=== PATIENT | male | born 1935 | race Caucasian/White ===

== ENCOUNTER 2017-09-10 17:35 | Observation (INO) | payer MEDICARE ==
[2017-09-10 17:57] LABS: Basophils % (A) 1 %; Eosinophils # (A) 0.3 k/uL (0-0.7); Eosinophils % (A) 3 %; HCT 37.8 % (39.0-53.0); HGB 12.6 gm/dL (13.0-17.5); Lymphocytes # (A) 2.5 k/uL (1.0-4.8); Lymphocytes % (A) 30 %; MCHC 33.4 g/dL (31.0-37.0); MCV 101.9 fL (80.0-100.0); Macrocytosis Slight; Monocytes # (A) 0.6 k/uL (0-1.0); Monocytes % (A) 7 %; Neutrophils # (A) 4.9 k/uL (1.3-7.7); Neutrophils % (A) 59 %; Platelet Count 178 k/uL (150-450); RBC 3.71 m/uL (4.30-5.90); RDW 15.6 % (11.5-15.5); WBC 8.3 k/uL (3.8-10.6)
[2017-09-10 18:07] LABS: Albumin 3.9 g/dL (3.5-5.0); Calcium 9.2 mg/dL (8.4-10.2); Potassium 4.9 mmol/L (3.5-5.1); Total Bilirubin 0.6 mg/dL (0.2-1.3); Total Protein 6.5 g/dL (6.3-8.2)
[2017-09-10 18:15] LABS: Creatine Kinase 67 U/L (55-170)
[2017-09-10 18:25] LABS: INR 1.1 (<1.2); Partial Thromboplastin Time 23.2 sec (22.0-30.0); Prothrombin Time 10.5 sec (9.0-12.0)
[2017-09-10 18:27] LABS: Appearance,Urine Clear (Clear); Bacteria,Urine Rare /hpf; Bilirubin,Urine Negative (Negative); Blood,Urine Negative (Negative); Color,Urine Yellow; Glucose,Urine (UA) 4+ (Negative); Hyaline Casts,Urine 86 /lpf (0-2); Ketones,Urine Trace (Negative); Leukocyte Esterase,Urine Negative (Negative); Mucus,Urine Many /hpf; Nitrite,Urine Negative (Negative); PH, Urine 5.5 (5.0-8.0); Protein,Urine 1+ (Negative); RBC,Urine 1 /hpf (0-5); Specific Gravity,Urine 1.021 (1.001-1.035); Squamous Epithelial Cell,Urine <1 /hpf (0-4); WBC,Urine 3 /hpf (0-5)
[2017-09-10 18:29] LABS: Creatine Kinase MB 1.1 ng/mL (0.0-2.4); Troponin I <0.012 ng/mL (0.000-0.034)
--- NOTE | 2017-09-10 18:37 | CT ---
EXAMINATION TYPE: CT brain wo con DATE OF EXAM: 09/10/2017 COMPARISON: NONE HISTORY: Altered mental status CT DLP: [address] of the brain was performed. The ventricles, basal cisterns and sulci overlying the cerebral convexities demonstrate mild enlargem ent. There is no evidence for intracranial hemorrhage or sulcal effacement. There is decreased attenuation about the periventricular white matter and deep white matter of both c erebral hemispheres, compatible with chronic small vessel ischemia. Differential diagnosis does inclu de demyelination. No mass effects are seen.No midline shift. Osseous calvarium is intact. If symptoms persist consider MRI. IMPRESSION: 1. Age related atrophic and chronic small vessel ischemic change without acute intracranial process s een at this time.
--- NOTE | 2017-09-10 19:07 | XR ---
EXAMINATION TYPE: XR KUB DATE OF EXAM: 09/10/2017 COMPARISON: NONE HISTORY: Pain TECHNIQUE: Single supine KUB image of the abdomen is obtained FINDINGS: Small bowel demonstrates no evidence for dilatation or air fluid levels. Gas and fecal material is seen in non-distended colon. No convincing evidence for pneumoperitoneum. No unusual calcifications. The lung bases are clear. The osseous structures are intact. IMPRESSION: 1. Overall nonobstructive bowel gas pattern.
--- NOTE | 2017-09-10 19:08 | XR ---
EXAMINATION TYPE: XR chest 2V DATE OF EXAM: 09/10/2017 COMPARISON: NONE HISTORY: Shortness of breath TECHNIQUE: Frontal and lateral views of the chest are obtained. FINDINGS: Scattered senescent parenchymal changes noted No evidence for infiltrate. No evidence for atelectasis. Heart size is stable. Mediastinal structures are stable and grossly unremarkable. No evidence for hilar prominence. Degenerative changes dorsal spine. IMPRESSION: 1. No evidence for acute pulmonary disease.
[2017-09-10] MEDS ORDERED: NALOXONE 0.4 MG/ML 1 ML VIAL IV PRN (19:53)
[2017-09-10] MEDS ORDERED: ASPIRIN 325 MG TAB PO STA (19:53)
--- NOTE | 2017-09-10 20:01 | ED ---
General Adult HPI - General Chief complaint: Altered Mental Status Stated complaint: Altered Mental status Time Seen by Provider: 09/10/17 17:38 Source: patient, EMS, RN notes reviewed Mode of arrival: EMS Limitations: altered mental status - History of Present Illness Initial comments: 82-year-old male presenting with episode of confusion and altered mental status. Patient was sitting up with family members, they noted that he was nonresponsive, he does have history of dementia but this was abnormal. Patient has history of TIA. No focal weakness reported patient was brought in by EMS for concerns of TIA and altered mental status. Patient is a poor historian, he does deny any pain complaints. Denies headache. Vital signs were stable during transport. Patient does see neurology for history of Alzheimer's dementia. No fever reported. No nausea vomiting or diarrhea reported. - Related Data Home Medications Medication Instructions Recorded Confirmed Aricept ? 1 tab PO DAILY 09/10/17 09/10/17 Dipyridamole-Aspirin 200-25 mg 1 each PO BID 09/10/17 09/10/17 [Aggrenox] Lipitor ? 1 tab PO DAILY 09/10/17 09/10/17 Namenda ? 1 tab PO DAILY 09/10/17 09/10/17 Allergies Allergy/AdvReac Type Severity Reaction Status Date / Time No Known Allergies Allergy Verified 09/10/17 19:20 Review of Systems ROS Statement: Those systems with pertinent positive or pertinent negative responses have been documented in the HPI. ROS Other: All systems not noted in ROS Statement are negative. Past Medical History Past Medical History: Unable to Obtain History of Any Multi-Drug Resistant Organisms: None Reported Past Surgical History: Unable to Obtain Past Psychological History: No Psychological Hx Reported Smoking Status: Never smoker Past Alcohol Use History: None Reported Past Drug Use History: None Reported General Exam Limitations: altered mental status General appearance: alert, in no apparent distress Head exam: Present: atraumatic, normocephalic Eye exam: Present: normal appearance, PERRL ENT exam: Present: mucous membranes dry Neck exam: Present: normal inspection. Absent: tenderness Respiratory exam: Present: normal lung sounds bilaterally. Absent: respiratory distress Cardiovascular Exam: Present: regular rate, normal rhythm GI/Abdominal exam: Present: soft. Absent: distended, tenderness, guarding Rectal exam: Present: deferred Extremities exam: Present: normal inspection, full ROM, normal capillary refill. Absent: pedal edema Neurological exam: Present: alert, CN II-XII intact. Absent: oriented X3, motor sensory deficit (No focal neurological deficits, NIH is 0) Psychiatric exam: Present: flat affect Skin exam: Present: warm, dry, intact. Absent: cyanosis, diaphoretic Course Vital Signs 09/10/17 09/10/17 17:40 19:00 Temperature 97 F L Pulse Rate 58 L 58 L Respiratory 18 18 Rate Blood Pressure 120/57 136/63 O2 Sat by Pulse 97 100 Oximetry EKG Findings - EKG Comments: EKG Findings:: EKG, sinus bradycardia with first-degree AV block, right bundle branch block, rate of 58, OH interval 316, QRS duration 144, QTC [address] segment elevation. Medical Decision Making - Medical Decision Making 82-year-old male presenting with an episode of confusion and altered mental status. Head CT is obtained, this is negative for any acute intracranial process, there is chronic ischemic changes. Patient's exam is nonfocal. Chest x-ray negative for acute intrathoracic process, no pneumonia. Blood cell count normal, hemoglobin stable, mild lactic acidosis likely secondary to a degree of dehydration. Urinalysis does show trace ketones consistent with dehydration. Patient receives IV hydration in the emergency department. Neurologic examination remains nonfocal. He is given an aspirin at the chance this was a TIA. He will be admitted for further evaluation of altered mental status. Patient's family is agreeable. Case discussed with Dr. Guillaume who will accept admission. - Lab Data Result diagrams: 09/10/17 17:42 09/10/17 17:42 Lab Results 09/10/17 09/10/17 09/10/17 Range/Units 17:42 17:42 17:42 WBC 8.3 (3.8-10.6) k/uL RBC 3.71 L (4.30-5.90) m/uL Hgb 12.6 L (13.0-17.5) gm/dL Hct 37.8 L (39.0-53.0) % MCV 101.9 H (80.0-100.0) fL MCH 34.0 (25.0-35.0) pg MCHC 33.4 (31.0-37.0) g/dL RDW 15.6 H (11.5-15.5) % Plt Count 178 (150-450) k/uL Neutrophils % 59 % Lymphocytes % 30 % Monocytes % 7 % Eosinophils % 3 % Basophils % 1 % Neutrophils # 4.9 (1.3-7.7) k/uL Lymphocytes # 2.5 (1.0-4.8) k/uL Monocytes # 0.6 (0-1.0) k/uL Eosinophils # 0.3 (0-0.7) k/uL Basophils # 0.0 (0-0.2) k/uL Macrocytosis Slight PT (9.0-12.0) sec INR (<1.2) APTT (22.0-30.0) sec Sodium 140 (137-145) mmol/L Potassium 4.9 (3.5-5.1) mmol/L Chloride 108 H (98-107) mmol/L Carbon Dioxide 21 L (22-30) mmol/L Anion Gap 11 mmol/L BUN 18 (9-20) mg/dL Creatinine 1.30 H (0.66-1.25) mg/dL Est GFR (CKD-EPI)AfAm 59 (>60 ml/min/1.73 sqM) Est GFR (CKD-EPI)NonAf 51 (>60 ml/min/1.73 sqM) Glucose 209 H (74-99) mg/dL Plasma Lactic Acid Jose (0.7-2.0) mmol/L Calcium 9.2 (8.4-10.2) mg/dL Total Bilirubin 0.6 (0.2-1.3) mg/dL AST 22 (17-59) U/L ALT 30 (21-72) U/L Alkaline Phosphatase 111 (38-126) U/L Total Creatine Kinase 67 (55-170) U/L CK-MB (CK-2) 1.1 (0.0-2.4) ng/mL CK-MB (CK-2) Rel Index 1.6 Troponin I <0.012 (0.000-0.034) ng/mL Total Protein 6.5 (6.3-8.2) g/dL Albumin 3.9 (3.5-5.0) g/dL Urine Color Urine Appearance (Clear) Urine pH (5.0-8.0) Ur Specific Loring (1.001-1.035) Urine Protein (Negative) Urine Glucose (UA) (Negative) Urine Ketones (Negative) Urine Blood (Negative) Urine Nitrite (Negative) Urine Bilirubin (Negative) Urine Urobilinogen (<2.0) mg/dL Ur Leukocyte Esterase (Negative) Urine RBC (0-5) /hpf Urine WBC (0-5) /hpf Ur Squamous Epith Cells (0-4) /hpf Urine Bacteria (None) /hpf Hyaline Casts (0-2) /lpf Urine Mucus (None) /hpf 09/10/17 09/10/17 09/10/17 Range/Units 17:42 17:42 18:00 WBC (3.8-10.6) k/uL RBC (4.30-5.90) m/uL Hgb (13.0-17.5) gm/dL Hct (39.0-53.0) % MCV (80.0-100.0) fL MCH (25.0-35.0) pg MCHC (31.0-37.0) g/dL RDW (11.5-15.5) % Plt Count (150-450) k/uL Neutrophils % % Lymphocytes % % Monocytes % % Eosinophils % % Basophils % % Neutrophils # (1.3-7.7) k/uL Lymphocytes # (1.0-4.8) k/uL Monocytes # (0-1.0) k/uL Eosinophils # (0-0.7) k/uL Basophils # (0-0.2) k/uL Macrocytosis PT 10.5 (9.0-12.0) sec INR 1.1 (<1.2) APTT 23.2 (22.0-30.0) sec Sodium (137-145) mmol/L Potassium (3.5-5.1) mmol/L Chloride (98-107) mmol/L Carbon Dioxide (22-30) mmol/L Anion Gap mmol/L BUN (9-20) mg/dL Creatinine (0.66-1.25) mg/dL Est GFR (CKD-EPI)AfAm (>60 ml/min/1.73 sqM) Est GFR (CKD-EPI)NonAf (>60 ml/min/1.73 sqM) Glucose (74-99) mg/dL Plasma Lactic Acid Jose 2.1 H* (0.7-2.0) mmol/L Calcium (8.4-10.2) mg/dL Total Bilirubin (0.2-1.3) mg/dL AST (17-59) U/L ALT (21-72) U/L Alkaline Phosphatase (38-126) U/L Total Creatine Kinase (55-170) U/L CK-MB (CK-2) (0.0-2.4) ng/mL CK-MB (CK-2) Rel Index Troponin I (0.000-0.034) ng/mL Total Protein (6.3-8.2) g/dL Albumin (3.5-5.0) g/dL Urine Color Yellow Urine Appearance Clear (Clear) Urine pH 5.5 (5.0-8.0) Ur Specific Loring 1.021 (1.001-1.035) Urine Protein 1+ H (Negative) Urine Glucose (UA) 4+ H (Negative) Urine Ketones Trace H (Negative) Urine Blood Negative (Negative) Urine Nitrite Negative (Negative) Urine Bilirubin Negative (Negative) Urine Urobilinogen 3.0 (<2.0) mg/dL Ur Leukocyte Esterase Negative (Negative) Urine RBC 1 (0-5) /hpf Urine WBC 3 (0-5) /hpf Ur Squamous Epith Cells <1 (0-4) /hpf Urine Bacteria Rare H (None) /hpf Hyaline Casts 86 H (0-2) /lpf Urine Mucus Many H (None) /hpf Disposition Clinical Impression: Altered mental status Disposition: ADMITTED IP TO THIS [facility] Condition: Stable Is patient prescribed a controlled substance at d/c from ED?: No Referrals: Keisha Dave MD [Primary Care Provider] - 1-2 days Decision to Admit Reason: Admit from EC Decision Date: 09/10/17 Decision Time: 20:00
[2017-09-10 22:24] VITALS: BMI 28.5
--- NOTE | 2017-09-11 12:14 | P.HPIM ---
History of Present Illness H&P Date: 09/11/17 Chief Complaint: Syncope This is a 82-year-old gentleman with past medical history noted below significant for prior CVA and advanced dementia who was brought into the emergency room for further evaluation of syncope. Patient is unable to provide any medical history and most of the history was provided by his at bedside. Patient was doing fairly well yesterday and was working with his in the yard all day riding the lawnmower. Afterwards he went inside and his decided to give him a haircut. Patient sat down in the chair and when she is getting ready to give him the haircut patient lost consciousness and collapsed forward and hit his head against the counter. Patient's reports that he was completely out. There was no seizure activity reported. No loss of bowel or urine control. She said that a few minutes later he started waking up but remained very confused. She eventually called EMS and patient was transferred to the emergency room. In the emergency room patient was more awake but remained confused. Computed tomography scan of the brain showed no acute intracranial findings. Patient was admitted to the hospital for further evaluation. He is not currently on telemetry monitoring. 12 leads EKG showed evidence of sinus bradycardia with first-degree heart block. Patient is currently awake and alert. He is oriented only to himself. He does not have any specific concerns. He is wondering if he can go home today. Review of Systems Review of system: 14 points review of systems were obtained and were negative except to what were mentioned in the HPI. Past Medical History Past Medical History: Cancer, CVA/TIA, Dementia, Hypertension, Memory Impairment , Syncope Additional Past Medical History / Comment(s): "bladder CA about 7 years ago, last stoke 2 years ago Nov." History of Any Multi-Drug Resistant Organisms: None Reported Past Surgical History: Unable to Obtain Past Psychological History: No Psychological Hx Reported Smoking Status: Current every day smoker Past Alcohol Use History: None Reported Past Drug Use History: None Reported Medications and Allergies Home Medications Medication Instructions Recorded Confirmed Type Dipyridamole-Aspirin 200-25 mg 1 tab PO BID 09/10/17 09/11/17 History [Aggrenox] Atorvastatin Calcium [Lipitor] 10 mg PO DAILY 09/11/17 09/11/17 History Donepezil [Aricept] 10 mg PO DAILY 09/11/17 09/11/17 History Lisinopril [Zestril] 10 mg PO DAILY 09/11/17 09/11/17 History Memantine [Namenda] 10 mg PO DAILY 09/11/17 09/11/17 History Allergies Allergy/AdvReac Type Severity Reaction Status Date / Time No Known Allergies Allergy Verified 09/10/17 19:20 Physical Exam Vitals: Vital Signs Temp Pulse Pulse Resp BP BP BP 09/11/17 11:36 56 L 18 09/11/17 11:35 69 18 09/11/17 11:34 58 L 18 139/65 09/11/17 07:16 98.0 F 58 L 16 152/69 09/10/17 23:00 98.0 F 70 16 128/64 09/10/17 21:35 98.4 F 65 18 119/64 09/10/17 20:30 66 16 155/74 09/10/17 19:00 58 L 18 136/63 09/10/17 17:40 97 F L 58 L 18 120/57 BP BP Pulse Ox 09/11/17 11:36 120/58 96 09/11/17 11:35 144/63 95 09/11/17 11:34 98 09/11/17 07:16 97 09/10/17 23:00 97 09/10/17 21:35 96 09/10/17 20:30 95 09/10/17 19:00 100 09/10/17 17:40 97 Intake and Output 09/10/17 09/11/17 09/11/17 22:59 06:59 14:59 Intake Total 250 Balance 250 Intake: Oral 250 Other: Voiding Method Diaper Diaper # Voids 1 1 # Bowel Movements 1 Weight 95.254 kg General: The patient is awake and alert, in no distress Eye: there is normal conjunctiva bilaterally. Neck: The neck is supple, there is no JVD. Cardiovascular: Normal S1-S2, no S3-S4, no murmurs. Respiratory: Lungs clear to auscultation bilaterally Gastrointestinal: Abdomen is soft, nontender Musculoskeletal: There is no pedal edema. Neurological:. Speech is normal. Skin: Skin is warm and dry Results CBC & Chem 7: 09/10/17 17:42 09/10/17 17:42 Labs: Abnormal Lab Results - Last 24 Hours (Table) 09/10/17 09/10/17 09/10/17 Range/Units 17:42 17:42 17:42 RBC 3.71 L (4.30-5.90) m/uL Hgb 12.6 L (13.0-17.5) gm/dL Hct 37.8 L (39.0-53.0) % MCV 101.9 H (80.0-100.0) fL RDW 15.6 H (11.5-15.5) % Chloride 108 H (98-107) mmol/L Carbon Dioxide 21 L (22-30) mmol/L Creatinine 1.30 H (0.66-1.25) mg/dL Glucose 209 H (74-99) mg/dL Plasma Lactic Acid Jose 2.1 H* (0.7-2.0) mmol/L Urine Protein (Negative) Urine Glucose (UA) (Negative) Urine Ketones (Negative) Urine Bacteria (None) /hpf Hyaline Casts (0-2) /lpf Urine Mucus (None) /hpf 09/10/17 Range/Units 18:00 RBC (4.30-5.90) m/uL Hgb (13.0-17.5) gm/dL Hct (39.0-53.0) % MCV (80.0-100.0) fL RDW (11.5-15.5) % Chloride (98-107) mmol/L Carbon Dioxide (22-30) mmol/L Creatinine (0.66-1.25) mg/dL Glucose (74-99) mg/dL Plasma Lactic Acid Jose (0.7-2.0) mmol/L Urine Protein 1+ H (Negative) Urine Glucose (UA) 4+ H (Negative) Urine Ketones Trace H (Negative) Urine Bacteria Rare H (None) /hpf Hyaline Casts 86 H (0-2) /lpf Urine Mucus Many H (None) /hpf Thrombosis Risk Factor Assmnt - Choose All That Apply Any of the Below Risk Factors Present?: Yes Each Factor Represents 1 point: Obesity (BMI >25) Each Risk Factor Represents 3 Points: Age 75 years or older Thrombosis Risk Factor Assessment Total Risk Factor Score: 4 Thrombosis Risk Factor Assessment Level: Moderate Risk Assessment and Plan Assessment: 1. Syncope: May be vasovagal. I would place patient on telemetry monitoring and obtain echocardiogram. 12 leads EKG showed sinus bradycardia with evidence of first-degree heart block. We'll consult cardiology for further evaluation. Orthostatic blood pressure ordered as well. 2. History of CVA: Computed tomography scan of the brain in the emergency room showed no acute intracranial finding 3. Essential hypertension we will resume home dose of lisinopril and continue to monitor closely 5. Mixed hyperlipidemia: Maintained on Lipitor. I would check fasting lipid profile
--- NOTE | 2017-09-11 14:51 | P.CRDCN ---
History of Present Illness Consult date: 09/11/17 History of present illness: Mr. Lou is a pleasant 82-year-old male past medical history significant for dementia, hypertension, CVA and nicotine dependence. The patient is a poor historian and his is at the bedside providing much information. Patient is seen in consultation for syncopal episode that occurred yesterday. She states they were outside in the yard doing work together for the bulk of the afternoon. After coming in she had him sit down at the counter was going to cut his hair. While sitting there he slumped forward hitting his head on the counter. She states his eyes were rolling back and has had and he was essentially unresponsive. Her grandson was home at the time and helped her assist him to the couch. He was nonverbal at the time. EMS was called and he was brought to the hospital for evaluation. EKG reveals first-degree AV block with right bundle branch block pattern no acute ST or T wave abnormalities noted. Heart rate in the 50s. Chest x-ray is negative for an acute cardiopulmonary process. CT of the brain is negative for an acute intracranial process. With evidence of chronic small vessel ischemic changes. Laboratory data reviewed, hemoglobin 12.6, platelets 178, sodium 140, potassium 4.9, creatinine 1.3, cardiac enzymes negative 1. Current cardiac medications include atorvastatin 10 mg daily, lisinopril 10 mg daily. He also takes Namenda, Aricept and Aggrenox. Most recent echocardiogram performed 2014 reveals preserved left ventricular systolic function with aortic valve stenosis peak/mean 17/9 mmHg. Most recent carotid duplex performed 2014 reveals mild to moderate atherosclerotic changes right greater than left with no significant stenosis. Review of Systems ROS unobtainable: due to mental status Past Medical History Past Medical History: Cancer, CVA/TIA, Dementia, Hypertension, Memory Impairment , Syncope Additional Past Medical History / Comment(s): "bladder CA about 7 years ago, last stoke 2 years ago Nov." History of Any Multi-Drug Resistant Organisms: None Reported Past Surgical History: Unable to Obtain Past Psychological History: No Psychological Hx Reported Smoking Status: Current every day smoker Past Alcohol Use History: None Reported Past Drug Use History: None Reported Medications and Allergies Home Medications Medication Instructions Recorded Confirmed Type Dipyridamole-Aspirin 200-25 mg 1 tab PO BID 09/10/17 09/11/17 History [Aggrenox] Atorvastatin Calcium [Lipitor] 10 mg PO DAILY 09/11/17 09/11/17 History Donepezil [Aricept] 10 mg PO DAILY 09/11/17 09/11/17 History Lisinopril [Zestril] 10 mg PO DAILY 09/11/17 09/11/17 History Memantine [Namenda] 10 mg PO DAILY 09/11/17 09/11/17 History Allergies Allergy/AdvReac Type Severity Reaction Status Date / Time No Known Allergies Allergy Verified 09/10/17 19:20 Physical Exam Vitals: Vital Signs Temp Pulse Pulse Resp BP BP BP 09/11/17 11:36 56 L 18 09/11/17 11:35 69 18 09/11/17 11:34 58 L 18 139/65 09/11/17 07:16 98.0 F 58 L 16 152/69 09/10/17 23:00 98.0 F 70 16 128/64 09/10/17 21:35 98.4 F 65 18 119/64 09/10/17 20:30 66 16 155/74 09/10/17 19:00 58 L 18 136/63 09/10/17 17:40 97 F L 58 L 18 120/57 BP BP Pulse Ox 09/11/17 11:36 120/58 96 09/11/17 11:35 144/63 95 09/11/17 11:34 98 09/11/17 07:16 97 09/10/17 23:00 97 09/10/17 21:35 96 09/10/17 20:30 95 09/10/17 19:00 100 09/10/17 17:40 97 Intake and Output 09/10/17 09/11/17 09/11/17 22:59 06:59 14:59 Intake Total 250 Balance 250 Intake: Oral 250 Other: Voiding Method Diaper Diaper # Voids 1 2 # Bowel Movements 1 Weight 95.254 kg Blood pressure 120/58 heart rate 56 afebrile maintaining oxygen saturation on room air GENERAL: This is a 82-year-old occasion male in no apparent distress at the time of my examination. HEENT: Head is atraumatic, normocephalic. Pupils are equal, round. Sclerae anicteric. Conjunctivae are clear. Mucous membranes of the mouth are moist. Neck is supple. There is no jugular venous distention. No carotid bruit is heard. LUNGS: Clear to auscultation no wheezes, rales or rhonchi. No chest wall tenderness is noted on palpation or with deep breathing. HEART: Regular rate and rhythm with systolic ejection murmur at the base, no rubs or gallops. S1 and S2 heard. ABDOMEN: Soft, nontender. Bowel sounds are heard. No organomegaly noted. EXTREMITIES: No evidence of peripheral edema and no calf tenderness noted. VASCULAR: Radial and dorsalis pedis pulses palpated, no evidence of clubbing. NEUROLOGIC: Patient is awake, cooperative and confused. states this is his baseline. Results 09/10/17 17:42 09/10/17 17:42 Cardiac Enzymes 09/10/17 09/10/17 Range/Units 17:42 17:42 AST 22 (17-59) U/L CK-MB (CK-2) 1.1 (0.0-2.4) ng/mL Troponin I <0.012 (0.000-0.034) ng/mL Coagulation 09/10/17 Range/Units 17:42 PT 10.5 (9.0-12.0) sec APTT 23.2 (22.0-30.0) sec CBC 09/10/17 Range/Units 17:42 WBC 8.3 (3.8-10.6) k/uL RBC 3.71 L (4.30-5.90) m/uL Hgb 12.6 L (13.0-17.5) gm/dL Hct 37.8 L (39.0-53.0) % Plt Count 178 (150-450) k/uL Comprehensive Metabolic Panel 09/10/17 Range/Units 17:42 Sodium 140 (137-145) mmol/L Potassium 4.9 (3.5-5.1) mmol/L Chloride 108 H (98-107) mmol/L Carbon Dioxide 21 L (22-30) mmol/L BUN 18 (9-20) mg/dL Creatinine 1.30 H (0.66-1.25) mg/dL Glucose 209 H (74-99) mg/dL Calcium 9.2 (8.4-10.2) mg/dL AST 22 (17-59) U/L ALT 30 (21-72) U/L Alkaline Phosphatase 111 (38-126) U/L Total Protein 6.5 (6.3-8.2) g/dL Albumin 3.9 (3.5-5.0) g/dL Current Medications Generic Name Dose Route Start Last Admin Trade Name Freq PRN Reason Stop Dose Admin Atorvastatin Calcium 10 mg 09/12/17 09:00 Lipitor PO DAILY [facility] Dipyridamole/Aspirin 1 each 09/11/17 21:00 Aggrenox PO BID [facility] Donepezil HCl 10 mg 09/12/17 09:00 Aricept PO DAILY [facility] Heparin Sodium (Porcine) 5,000 unit 09/11/17 21:00 Heparin SQ Q12HR [facility] Lisinopril 10 mg 09/12/17 09:00 Zestril PO DAILY [facility] Memantine 10 mg 09/12/17 09:00 Namenda PO DAILY [facility] Naloxone HCl 0.2 mg 09/10/17 19:53 Narcan IV Q2M PRN Opioid Reversal Intake and Output 09/10/17 09/11/17 09/11/17 22:59 06:59 14:59 Intake Total 250 Balance 250 Intake: Oral 250 Other: Voiding Method Diaper Diaper # Voids 1 2 # Bowel Movements 1 Weight 95.254 kg 09/10/17 17:42 09/10/17 17:42 Assessment and Plan Assessment: ASSESSMENT 1. Syncope 2. Hypertension 3. Dyslipidemia 4. Alzheimer's dementia PLAN Obtain 2-D echocardiogram and Doppler study to assess cardiac structure and function. Check d-dimer and TSH. Ongoing telemetry monitoring to assess for arrhythmia. Avoid AV kirsten blocking agents. Further recommendations to follow. Thank you kindly for this consultation. Nurse Practitioner note has been reviewed, I agree with a documented findings and plan of care. Patient was seen and examined.
[2017-09-11 16:17] LABS: T4, Free (Free Thyroxine) 1.28 ng/dL (0.78-2.19)
--- NOTE | 2017-09-11 19:18 | P.CNNES ---
History of Present Illness Consult date: 09/11/17 Reason for Consult: Patient with syncope and history of dementia. History of Present Illness: This patient is a 82-year-old right-handed white male who is been followed in the outpatient neurology clinic for Alzheimer's dementia and progressive weakness. Patient was at home recently and was assisting his and some yard work outdoors and was riding the lawnmower. Apparently he went inside after doing an extensive amount of exercise and assistance to his and decided to take a short break. He was sitting at the kitchen table and apparently his decided to give him a haircut. He sat down in the chair and she was getting ready to help cut his hair when he apparently lost consciousness and collapsed forward. His head hit the counter top any was unresponsive. Patient noted that he was unresponsive and not arousable. There was no seizure activity noted with this episode. There was no loss of bowel or bladder control. She did call EMS and he did wake up and appeared to be very confused. He was transferred by EMS to the emergency room at [facility] for further evaluation. He was seen in the ER by Dr. Calles. He was sent for a computed tomography scan of the brain yesterday which revealed age related atrophy and chronic small vessel ischemic changes. No evidence of acute intracranial process. There was diffuse cortical atrophy noted consistent with his history of dementia. In the emergency room his EKG revealed him to have some degree of sinus bradycardia with first-degree AV heart block. He was admitted to the hospital for further evaluation. He is now seen today on the medical floor and seems to be resting comfortably. He has a known history of underlying dementia for which she has been taking Aricept and Namenda. He has a history of previous stroke and for this reason also takes Aggrenox. was not at bedside today but the patient does seem to be her baseline level of function as he was recently evaluated in the outpatient neurology clinic. His explanation for this recent event was due to the excessive amount of exercise he had done in cleaning up the yard with his . This history suggests possibility of vasovagal syncope in this patient. We will await further recommendations from cardiology in their workup of his sinus bradycardia as well. We will check for orthostatic blood pressure changes. Doubt that he had a seizure but we will obtain routine EEG. His overall prognosis at this time remains guarded. We would recommend to continue him on his current dose of Aricept and Namenda. is aware of our recommendations to consider placement for the patient but she is insistent on having him stay at home with her with outside assistance as needed. The patient is now admitted and neurology has been consulted for further evaluation and recommendations. Review of Systems Constitutional: Denies chills, Denies fever Eyes: denies blurred vision, denies pain Ears, nose, mouth and throat: Denies headache, Denies sore throat Cardiovascular: Denies chest pain, Denies shortness of breath Respiratory: Denies cough Gastrointestinal: Denies abdominal pain, Denies diarrhea, Denies nausea, Denies vomiting Musculoskeletal: Denies myalgias Integumentary: Denies pruritus, Denies rash Neurological: Reports change in mentation, Reports confusion, Reports memory loss, Reports paresthesias, Reports syncope, Denies numbness, Denies weakness Psychiatric: Reports confusion, Reports difficulty concentrating, Reports disorientation, Reports hypersomnia, Reports memory loss, Denies anxiety, Denies depression Endocrine: Denies fatigue, Denies weight change Past Medical History Past Medical History: Cancer, CVA/TIA, Dementia, Hypertension, Memory Impairment , Syncope Additional Past Medical History / Comment(s): "bladder CA about 7 years ago, last stoke 2 years ago Nov." History of Any Multi-Drug Resistant Organisms: None Reported Past Surgical History: Unable to Obtain Past Psychological History: No Psychological Hx Reported Smoking Status: Current every day smoker Past Alcohol Use History: None Reported Past Drug Use History: None Reported Medications and Allergies Home Medications Medication Instructions Recorded Confirmed Type Dipyridamole-Aspirin 200-25 mg 1 tab PO BID 09/10/17 09/11/17 History [Aggrenox] Atorvastatin Calcium [Lipitor] 10 mg PO DAILY 09/11/17 09/11/17 History Donepezil [Aricept] 10 mg PO DAILY 09/11/17 09/11/17 History Lisinopril [Zestril] 10 mg PO DAILY 09/11/17 09/11/17 History Memantine [Namenda] 10 mg PO DAILY 09/11/17 09/11/17 History Allergies Allergy/AdvReac Type Severity Reaction Status Date / Time No Known Allergies Allergy Verified 09/10/17 19:20 Physical Examination - Vital Signs Vital Signs: Vital Signs Temp Pulse Pulse Resp BP BP BP 09/11/17 15:10 98.1 F 52 L 16 09/11/17 11:36 56 L 18 09/11/17 11:35 69 18 09/11/17 11:34 58 L 18 139/65 09/11/17 07:16 98.0 F 58 L 16 152/69 09/10/17 23:00 98.0 F 70 16 128/64 09/10/17 21:35 98.4 F 65 18 119/64 09/10/17 20:30 66 16 155/74 09/10/17 19:00 58 L 18 136/63 09/10/17 17:40 97 F L 58 L 18 120/57 BP BP Pulse Ox 09/11/17 15:10 125/58 98 09/11/17 11:36 120/58 96 09/11/17 11:35 144/63 95 09/11/17 11:34 98 09/11/17 07:16 97 09/10/17 23:00 97 09/10/17 21:35 96 09/10/17 20:30 95 09/10/17 19:00 100 09/10/17 17:40 97 Intake and Output 09/11/17 09/11/17 09/11/17 06:59 14:59 22:59 Intake Total 250 Balance 250 Intake: Oral 250 Other: Voiding Method Diaper Diaper Diaper # Voids 1 2 # Bowel Movements 1 - Constitutional General appearance: average body habitus, cooperative - EENT EENT: PERRL, mucous membranes moist - Respiratory Respiratory: lungs clear, normal breath sounds - Cardiovascular Cardiovascular: regular rate, normal S1, normal S2 Extremities: no peripheral edema bilaterally - Gastrointestinal Gastrointestinal: normoactive bowel sounds - Integumentary Integumentary: normal - Neurologic Cranial nerve examination: PERRL, EOMI, VFF, V1/V2/V3 grossly intact, face symmetric, tongue midline, intact gag reflex, intact corneal reflex, normal palatal elevation Speech examination: intact Sensorimotor examination: intact Motor examination - right side: 4/5: biceps, triceps, wrist flexion, wrist extension, clinical data analyst, hip flexors, knee extensors, dorsiflexion, toe extension (EHL) , plantarflexion Motor examination - left side: 4/5: biceps, triceps, wrist flexion, wrist extension, clinical data analyst, hip flexors, knee extensors, dorsiflexion, toe extension (EHL) , plantarflexion Detailed sensory examination: intact Reflex and gait examination: intact Reflexes: 1+: ankle, bicep, knee, tricep - Musculoskeletal Musculoskeletal: no pain - Psychiatric Psychiatric: mood/affect appropriate, cooperative Results - Laboratory Findings CBC and BMP: 09/10/17 17:42 09/10/17 17:42 Abnormal Lab Findings: Abnormal Labs 09/10/17 09/10/17 09/10/17 17:42 17:42 17:42 RBC 3.71 L Hgb 12.6 L Hct 37.8 L MCV 101.9 H RDW 15.6 H Chloride 108 H Carbon Dioxide 21 L Creatinine 1.30 H Glucose 209 H Plasma Lactic Acid Jose 2.1 H* TSH Urine Protein Urine Glucose (UA) Urine Ketones Urine Bacteria Hyaline Casts Urine Mucus 09/10/17 09/10/17 17:54 18:00 RBC Hgb Hct MCV RDW Chloride Carbon Dioxide Creatinine Glucose Plasma Lactic Acid Jose TSH 6.480 H Urine Protein 1+ H Urine Glucose (UA) 4+ H Urine Ketones Trace H Urine Bacteria Rare H Hyaline Casts 86 H Urine Mucus Many H Assessment and Plan (1) Syncope Current Visit: Yes Status: Acute Code(s): R55 - SYNCOPE AND COLLAPSE SNOMED Code(s): 744455085 (2) Alzheimer's dementia Current Visit: Yes Status: Acute Code(s): G30.9 - ALZHEIMER'S DISEASE, UNSPECIFIED; F02.80 - DEMENTIA IN OTH DISEASES CLASSD ELSWHR W/O BEHAVRL DISTURB SNOMED Code(s): 51455700 (3) Acute encephalopathy Current Visit: Yes Status: Acute Code(s): G93.40 - ENCEPHALOPATHY, UNSPECIFIED SNOMED Code(s): 14534664 (4) First degree AV block Current Visit: Yes Status: Acute Code(s): I44.0 - ATRIOVENTRICULAR BLOCK, FIRST DEGREE SNOMED Code(s): 365766501 Plan: This patient is a 82-year-old male who was admitted to hospital after having an acute witnessed syncopal episode at home yesterday. He had been helping his doing some outdoor work on the yard with cleanup and lawn mowing. He had been out in the sun and decided to come in after several hours and sat down at the kitchen table. He was going to have a haircut which his was planning to do but unfortunately he passed out while sitting in the chair. He was unresponsive for several minutes. He did not show any signs of seizure activity with this episode. There was no bowel or bladder incontinence. He did not bite his tongue. EMS was called and the patient was brought into the emergency room for further evaluation yesterday. He underwent a computed tomography scan of the brain the results which are noted above. His clinical history suggests possibility of vasovagal syncope and/or cardiogenic syncope. Cardiology has been consulted. We will await their further recommendations. We 'll obtain routine EEG to rule out seizure disorder in this patient. This seems to be less likely. He does have history of underlying Alzheimer's dementia and should continue on his current dose of Aricept and Namenda. We will continue close neurological follow-up for the patient during this admission. His overall prognosis at this time remains guarded. Time with Patient: Greater than 30
[2017-09-11] MEDS: HEPARIN SODIUM,PORCINE 5,000 UNIT/ML 1 ML VIAL SQ SCH (20:04)
[2017-09-11] MEDS: DIPYRIDAMOLE-ASPIRIN 200-25 MG 1 EACH CPMP.12HR PO SCH (20:04)
[2017-09-12] MEDS: DIPYRIDAMOLE-ASPIRIN 200-25 MG 1 EACH CPMP.12HR PO SCH (08:15)
[2017-09-12] MEDS: HEPARIN SODIUM,PORCINE 5,000 UNIT/ML 1 ML VIAL SQ SCH (08:16)
[2017-09-12 08:35] LABS: Basophils # (A) 0.1 k/uL (0-0.2); Basophils % (A) 1 %; Eosinophils # (A) 0.4 k/uL (0-0.7); Eosinophils % (A) 5 %; HCT 36.4 % (39.0-53.0); HGB 12.6 gm/dL (13.0-17.5); Lymphocytes # (A) 2.6 k/uL (1.0-4.8); Lymphocytes % (A) 36 %; MCHC 34.6 g/dL (31.0-37.0); MCV 101.3 fL (80.0-100.0); Macrocytosis Slight; Mean Platelet Volume 8.1; Monocytes # (A) 0.4 k/uL (0-1.0); Monocytes % (A) 6 %; Neutrophils # (A) 3.7 k/uL (1.3-7.7); Neutrophils % (A) 51 %; Platelet Count 170 k/uL (150-450); RBC 3.59 m/uL (4.30-5.90); RDW 15.9 % (11.5-15.5); WBC 7.3 k/uL (3.8-10.6)
[2017-09-12] MEDS ORDERED: DONEPEZIL 10 MG TAB PO SCH (09:00)
[2017-09-12] MEDS ORDERED: LISINOPRIL 10 MG TAB PO SCH (09:00)
[2017-09-12] MEDS ORDERED: MEMANTINE 10 MG TAB PO SCH (09:00)
[2017-09-12] MEDS ORDERED: ATORVASTATIN 10 MG TAB PO SCH (09:00)
[2017-09-12 09:11] VITALS: BP 147/73; PULSE 65; RESP 22; TEMP 97.3
[2017-09-12 09:42] LABS: Anion Gap 12 mmol/L; Blood Urea Nitrogen 16 mg/dL (9-20); Calcium 9.1 mg/dL (8.4-10.2); Carbon Dioxide 22 mmol/L (22-30); Chloride 107 mmol/L (98-107); Cholesterol 173 mg/dL (<200); Glucose 171 mg/dL (74-99); HDL Cholesterol 70 mg/dL (40-60); LDL Cholesterol,Calculated 79 mg/dL (0-99); Magnesium 2.2 mg/dL (1.6-2.3); Potassium 4.4 mmol/L (3.5-5.1); Sodium 141 mmol/L (137-145); Triglycerides 122 mg/dL (<150)
--- NOTE | 2017-09-12 12:44 | P.DS ---
Providers Date of admission: 09/10/17 19:53 Expected date of discharge: 09/12/17 Attending physician: Sudhir Guillaume Consults: 09/10/17 19:54 Consult Physician Urgent Consulting Provider: Luly Carrasco Consult Reason/Comments: AMS Do you want consulting provider notified?: Yes 09/11/17 12:12 Consult Physician Routine Consulting Provider: Chinmay Robles Consult Reason/Comments: Syncope Do you want consulting provider notified?: Yes Primary care physician: Keisha Dave Hospital Course: 1. Syncope: Probably vasovagal. 12 leads EKG showed sinus bradycardia with evidence of first-degree heart block. Patient was seen and evaluated by cardiology. Echocardiogram done and awaiting report. Patient was in normal sinus rhythm on telemetry monitoring. No further testing is recommended. Orthostatic blood pressure checked and negative. 2. History of CVA: Computed tomography scan of the brain in the emergency room showed no acute intracranial finding 3. Essential hypertension we will resume home dose of lisinopril and continue to monitor closely 5. Mixed hyperlipidemia: Maintained on Lipitor. Cholesterol within acceptable range Patient will be discharged home in a stable condition. He will follow-up with his PCP regarding echocardiogram report. Patient Condition at Discharge: Stable Plan - Discharge Summary Discharge Rx Participant: No New Discharge Prescriptions: Continue Dipyridamole-Aspirin 200-25 mg [Aggrenox 25MG -200MG] 1 tab PO BID Memantine [Namenda] 10 mg PO DAILY Lisinopril [Zestril] 10 mg PO DAILY Donepezil [Aricept] 10 mg PO DAILY Atorvastatin Calcium [Lipitor] 10 mg PO DAILY Discharge Medication List Dipyridamole-Aspirin 200-25 mg [Aggrenox 25MG -200MG] 1 tab PO BID 09/10/17 [ History] Atorvastatin Calcium [Lipitor] 10 mg PO DAILY 09/11/17 [History] Donepezil [Aricept] 10 mg PO DAILY 09/11/17 [History] Lisinopril [Zestril] 10 mg PO DAILY 09/11/17 [History] Memantine [Namenda] 10 mg PO DAILY 09/11/17 [History] Follow up Appointment(s)/Referral(s): Keisha Dave MD [Primary Care Provider] - 1-2 days Discharge Disposition: HOME SELF-CARE
--- NOTE | 2017-09-12 14:05 | P.PN ---
Subjective Progress Note Date: 09/12/17 Mr. Lou is a pleasant 82-year-old male past medical history significant for dementia, hypertension, CVA and nicotine dependence. The patient is a poor historian and his is at the bedside providing much information. Patient is seen in consultation for syncopal episode that occurred yesterday. She states they were outside in the yard doing work together for the bulk of the afternoon. After coming in she had him sit down at the counter was going to cut his hair. While sitting there he slumped forward hitting his head on the counter. She states his eyes were rolling back and has had and he was essentially unresponsive. Her grandson was home at the time and helped her assist him to the couch. He was nonverbal at the time. EMS was called and he was brought to the hospital for evaluation. EKG reveals first-degree AV block with right bundle branch block pattern no acute ST or T wave abnormalities noted. Heart rate in the 50s. Chest x-ray is negative for an acute cardiopulmonary process. CT of the brain is negative for an acute intracranial process. With evidence of chronic small vessel ischemic changes. Laboratory data reviewed, hemoglobin 12.6, platelets 178, sodium 140, potassium 4.9, creatinine 1.3, cardiac enzymes negative 1. Current cardiac medications include atorvastatin 10 mg daily, lisinopril 10 mg daily. He also takes Namenda, Aricept and Aggrenox. Most recent echocardiogram performed 2014 reveals preserved left ventricular systolic function with aortic valve stenosis peak/mean 17/9 mmHg. Most recent carotid duplex performed 2014 reveals mild to moderate atherosclerotic changes right greater than left with no significant stenosis. 09/12/2017 Patient was seen and examined today resting comfortably in bed with at the bedside. No further symptoms of dizziness or syncope. D-dimer checked yesterday was normal, TSH 6.48 with a free T4 1.28. Blood pressure 147/73 heart rate 65 afebrile maintaining oxygen saturation on room air. Echocardiogram reviewed, mild aortic stenosis with mean gradient 10 mmHg, mild AR, mildly dilated aortic root 3.8 cm and with preserved LV systolic function. Objective - Vital Signs Vital signs: Vital Signs Temp 97.3 F L 09/12/17 07:55 Pulse 65 09/12/17 07:55 Resp 22 09/12/17 07:55 BP 147/73 09/12/17 07:55 Pulse Ox 96 09/12/17 07:55 Intake & Output 09/11/17 09/12/17 09/12/17 18:59 06:59 18:59 Other: Voiding Method Diaper Toilet Toilet Diaper Diaper # Voids 2 1 # Bowel Movements 1 - Exam GENERAL: Well-appearing, well-nourished and in no acute distress. NECK: Supple without JVD or thyromegaly. LUNGS: Breath sounds clear to auscultation bilaterally. Respiration equal and unlabored. No wheezes, rales or rhonchi. HEART: Regular rate and rhythm with systolic ejection murmur at the base, no rubs or gallops. S1 and S2 heard. EXTREMITIES: Normal range of motion, no edema. No clubbing or cyanosis. Peripheral pulses intact and strong. - Labs CBC & Chem 7: 09/12/17 08:01 09/12/17 08:01 Labs: Abnormal Lab Results - Last 24 Hours (Table) 09/10/17 09/12/17 09/12/17 Range/Units 17:54 08:01 08:01 RBC 3.59 L (4.30-5.90) m/uL Hgb 12.6 L (13.0-17.5) gm/dL Hct 36.4 L (39.0-53.0) % MCV 101.3 H (80.0-100.0) fL RDW 15.9 H (11.5-15.5) % Glucose 171 H (74-99) mg/dL HDL Cholesterol 70 H (40-60) mg/dL TSH 6.480 H (0.465-4.680) mIU/L Assessment and Plan Assessment: ASSESSMENT 1. Syncope 2. Hypertension 3. Dyslipidemia 4. Alzheimer's dementia PLAN Stable from a cardiac perspective with no signs of acute arrhythmia. Telemetry tracings continued to show rate of cardiac with first-degree heart block heart rate in the mid to low 50s. We recommended avoiding all AV kirsten blocking agents. Follow-up with Dr. Robles upon discharge. Will require monitoring of aortic root size. Nurse Practitioner note has been reviewed, I agree with a documented findings and plan of care. Patient was seen and examined.
--- NOTE | 2017-09-12 16:19 | EEG ---
ELECTROENCEPHALOGRAM REPORT DATE OF EE09/12/2017. ELECTROENCEPHALOGRAPHIC EXAMINATION REPORT: INDICATION FOR EXAMINATION: This patient is an 82-year-old male being evaluated for acute syncope and history of dementia. AGE: [age]. EEG FINDINGS: A routine 21-channel awake digital EEG recording was accomplished utilizing the 10-20 international system with bipolar and referential montages. The background activity in the most alert resting state consists of a low to medium amplitude, poorly developed and poorly sustained 6 Hz activity over the posterior head regions. This posterior rhythm attenuates minimally to eye opening. There is an excessive amount of low amplitude 18-20 Hz beta activity seen throughout the entire tracing. Hyperventilation was not performed. Photic stimulation at flash frequencies of 2-30 Hz produced a minimal occipital driving response. No epileptiform discharges were seen. IMPRESSION: This EEG is moderately abnormal in a diffuse fashion due to slowing of the EEG background. The EEG failed to reveal any focal, lateralized, or epileptiform abnormalities. Clinical correlation is recommended. MMHONEY / COLEENN: [id number] /
--- NOTE | 2017-09-13 12:42 | ECHOF ---
Referral Reason:syncope MEASUREMENTS -------- HEIGHT: 182.9 cm WEIGHT: 95.3 kg BP: 120/58 RVIDd: 3.0 cm (< 3.3) IVSd: 1.1 cm (0.6 - 1.1) LVIDd: 4.9 cm (3.9 - 5.3) LVPWd: 1.2 cm (0.6 - 1.1) IVSs: 1.5 cm LVIDs: 3.4 cm LVPWs: 2.0 cm LA Diam: 3.7 cm (2.7 - 3.8) LAESV Index (A-L): 29.42 ml/m Ao Diam: 3.8 cm (2.0 - 3.7) AV Cusp: 2.0 cm (1.5 - 2.6) MV EXCURSION: 11.800 mm (> 18.000) MV EF SLOPE: 46 mm/s (70 - 150) EPSS: 0.8 cm MV E John: 1.27 m/s MV DecT: 295 ms MV A John: 1.10 m/s MV E/A Ratio: 1.16 AV maxP.10 mmHg AV maxP.10 mmHg AV meanP.21 mmHg FINDINGS -------- Sinus rhythm. This was a technically good study. The left ventricular size is normal. There is borderline concentric left ventricular hypertrophy. Overall left ventricular systolic function is normal with, an EF between 55 - 60 %. The right ventricle is normal in size. LA is midly dilated 29-33ml/m2. The right atrium is normal in size. There is mild aortic valve sclerosis. There is mild aortic regurgitation. There is mild aortic st enosis present. Peak/mean gradient across the Aortic Valve is 20.10mmHg / 10.21mmHg. The mitral valve leaflets are mildly thickened. The tricuspid valve appears structurally normal. There is no pulmonic regurgitation present. The aortic root is dilated measuring 3.8cm. Normal inferior vena cava with normal inspiratory collapse consistent with estimated right atrial pre ssure of 5 mmHg. There is no pericardial effusion. CONCLUSIONS -------- 1. Sinus rhythm. 2. This was a technically good study. 3. The left ventricular size is normal. 4. There is borderline concentric left ventricular hypertrophy. 5. Overall left ventricular systolic function is normal with, an EF between 55 - 60 %. 6. The right ventricle is normal in size. 7. LA is midly dilated 29-33ml/m2. 8. The right atrium is normal in size. 9. There is mild aortic valve sclerosis. 10. There is mild aortic regurgitation. 11. There is mild aortic stenosis present. 12. Peak/mean gradient across the Aortic Valve is 20.10mmHg / 10.21mmHg. 13. The mitral valve leaflets are mildly thickened. 14. The tricuspid valve appears structurally normal. 15. There is no pulmonic regurgitation present. 16. The aortic root is dilated measuring 3.8cm. 17. Normal inferior vena cava with normal inspiratory collapse consistent with estimated right atrial pressure of 5 mmHg. 18. There is no pericardial effusion. SALES SERVICE SUPERVISOR: Lashell Harrington RDCS
== END 2017-09-12 14:20 | disposition home or self-care (01) ==
LOC: EC 17:35 → 5MS5E 19:53
PROVIDERS: ADMIT Internal Medicine; ATTEND Internal Medicine
DX: R55 Syncope and collapse (principal); I44.0 Atrioventricular block, first degree; R00.1 Bradycardia, unspecified; G30.9 Alzheimer's disease, unspecified; F02.80 Dementia in other diseases classified elsewhere, unspecified severity, without behavioral disturbance, psychotic disturbance, mood disturbance, and anxiety; G93.40 Encephalopathy, unspecified; I10 Essential (primary) hypertension; E78.2 Mixed hyperlipidemia; Z79.02 Long term (current) use of antithrombotics/antiplatelets; Z79.899 Other long term (current) drug therapy; F17.200 Nicotine dependence, unspecified, uncomplicated; Z85.51 Personal history of malignant neoplasm of bladder; Z86.73 Personal history of transient ischemic attack (TIA), and cerebral infarction without residual deficits
CPT/HCPCS: 99285 ×2; 96372; 36415; 95816; 93005; 93306; 85379; 84439; 80061; 80053; 80048; 84443; 82550; 82553; 83605; 83735; 84484; 85025 ×2; 85610; 85730; 81001; 71046; 74018; 70450; G0378 ×3; J1644

== ENCOUNTER 2017-09-17 17:43 | Inpatient (IN) | payer MEDICARE ==
[2017-09-17] MEDS ORDERED: SODIUM CHLORIDE 0.9% 1,000 ML IV STA (17:55)
--- NOTE | 2017-09-17 17:59 | ED ---
General Adult HPI - General Stated complaint: weakness Time Seen by Provider: 09/17/17 17:52 Source: RN notes reviewed, old records reviewed - History of Present Illness Initial comments: This is an 82-year-old male the ER for evasive weakness leg weakness and falling from a chair. History obtained from EMS and patient's family, patient was unable to get up after falling her sliding off a chair. Patient has severe weakness, unable to talk secondary to dementia plus CVA - Related Data Home Medications Medication Instructions Recorded Confirmed Dipyridamole-Aspirin 200-25 mg 1 tab PO BID 09/10/17 09/17/17 [Aggrenox 25MG -200MG] Atorvastatin Calcium [Lipitor] 10 mg PO DAILY 09/11/17 09/17/17 Donepezil [Aricept] 10 mg PO DAILY 09/11/17 09/17/17 Lisinopril [Zestril] 5 mg PO DAILY 09/11/17 09/17/17 Memantine [Namenda] 10 mg PO BID 09/11/17 09/17/17 Allergies Allergy/AdvReac Type Severity Reaction Status Date / Time No Known Allergies Allergy Verified 09/17/17 18:30 Review of Systems ROS Statement: Those systems with pertinent positive or pertinent negative responses have been documented in the HPI. ROS Other: All systems not noted in ROS Statement are negative. Past Medical History Past Medical History: Cancer, CVA/TIA, Dementia, Hypertension, Memory Impairment , Syncope Additional Past Medical History / Comment(s): "bladder CA about 7 years ago, last stoke 2 years ago Nov." History of Any Multi-Drug Resistant Organisms: None Reported Past Surgical History: Unable to Obtain Past Psychological History: No Psychological Hx Reported Smoking Status: Current every day smoker Past Alcohol Use History: None Reported Past Drug Use History: None Reported Course Vital Signs 09/17/17 09/17/17 09/17/17 17:46 18:54 19:21 Temperature 98.7 F Pulse Rate 69 68 71 Respiratory 16 18 16 Rate Blood Pressure 117/57 150/72 149/72 O2 Sat by Pulse 98 99 97 Oximetry 09/17/17 20:39 Temperature Pulse Rate 60 Respiratory 18 Rate Blood Pressure 122/58 O2 Sat by Pulse 98 Oximetry - Reevaluation(s) Reevaluation #1: 09/17/17 19:47 Patient with no clinical improvement, medical record is reviewed EKG Findings - EKG Comments: EKG Findings:: EKG shows rate of 68, QRS 1:30, QTc 459 Medical Decision Making - Medical Decision Making 80 female ER for altered mental status, not acting appropriately not speaking, again poor strain. CT remains unchanged, patient will be admitted for continued neurological evaluation - Lab Data Result diagrams: 09/17/17 17:57 09/17/17 17:57 Lab Results 09/17/17 09/17/17 09/17/17 Range/Units 17:57 17:57 17:57 WBC 9.2 (3.8-10.6) k/uL RBC 3.65 L (4.30-5.90) m/uL Hgb 12.8 L (13.0-17.5) gm/dL Hct 37.6 L (39.0-53.0) % MCV 102.9 H (80.0-100.0) fL MCH 35.0 (25.0-35.0) pg MCHC 34.0 (31.0-37.0) g/dL RDW 15.6 H (11.5-15.5) % Plt Count 187 (150-450) k/uL Neutrophils % 63 % Lymphocytes % 25 % Monocytes % 7 % Eosinophils % 3 % Basophils % 0 % Neutrophils # 5.8 (1.3-7.7) k/uL Lymphocytes # 2.3 (1.0-4.8) k/uL Monocytes # 0.7 (0-1.0) k/uL Eosinophils # 0.2 (0-0.7) k/uL Basophils # 0.0 (0-0.2) k/uL Macrocytosis Slight PT (9.0-12.0) sec INR (<1.2) APTT (22.0-30.0) sec Sodium 140 (137-145) mmol/L Potassium 4.3 (3.5-5.1) mmol/L Chloride 107 (98-107) mmol/L Carbon Dioxide 21 L (22-30) mmol/L Anion Gap 12 mmol/L BUN 21 H (9-20) mg/dL Creatinine 0.99 (0.66-1.25) mg/dL Est GFR (CKD-EPI)AfAm 82 (>60 ml/min/1.73 sqM) Est GFR (CKD-EPI)NonAf 71 (>60 ml/min/1.73 sqM) Glucose 163 H (74-99) mg/dL Calcium 9.5 (8.4-10.2) mg/dL Phosphorus 3.0 (2.5-4.5) mg/dL Magnesium 2.5 H (1.6-2.3) mg/dL Total Bilirubin 0.7 (0.2-1.3) mg/dL AST 29 (17-59) U/L ALT 31 (21-72) U/L Alkaline Phosphatase 113 (38-126) U/L Total Creatine Kinase 169 (55-170) U/L CK-MB (CK-2) 1.7 (0.0-2.4) ng/mL CK-MB (CK-2) Rel Index 1.0 Troponin I 0.014 (0.000-0.034) ng/mL Total Protein 6.8 (6.3-8.2) g/dL Albumin 4.1 (3.5-5.0) g/dL TSH 1.680 (0.465-4.680) mIU/L 09/17/17 Range/Units 17:57 WBC (3.8-10.6) k/uL RBC (4.30-5.90) m/uL Hgb (13.0-17.5) gm/dL Hct (39.0-53.0) % MCV (80.0-100.0) fL MCH (25.0-35.0) pg MCHC (31.0-37.0) g/dL RDW (11.5-15.5) % Plt Count (150-450) k/uL Neutrophils % % Lymphocytes % % Monocytes % % Eosinophils % % Basophils % % Neutrophils # (1.3-7.7) k/uL Lymphocytes # (1.0-4.8) k/uL Monocytes # (0-1.0) k/uL Eosinophils # (0-0.7) k/uL Basophils # (0-0.2) k/uL Macrocytosis PT 10.3 (9.0-12.0) sec INR 1.1 (<1.2) APTT 25.4 (22.0-30.0) sec Sodium (137-145) mmol/L Potassium (3.5-5.1) mmol/L Chloride (98-107) mmol/L Carbon Dioxide (22-30) mmol/L Anion Gap mmol/L BUN (9-20) mg/dL Creatinine (0.66-1.25) mg/dL Est GFR (CKD-EPI)AfAm (>60 ml/min/1.73 sqM) Est GFR (CKD-EPI)NonAf (>60 ml/min/1.73 sqM) Glucose (74-99) mg/dL Calcium (8.4-10.2) mg/dL Phosphorus (2.5-4.5) mg/dL Magnesium (1.6-2.3) mg/dL Total Bilirubin (0.2-1.3) mg/dL AST (17-59) U/L ALT (21-72) U/L Alkaline Phosphatase (38-126) U/L Total Creatine Kinase (55-170) U/L CK-MB (CK-2) (0.0-2.4) ng/mL CK-MB (CK-2) Rel Index Troponin I (0.000-0.034) ng/mL Total Protein (6.3-8.2) g/dL Albumin (3.5-5.0) g/dL TSH (0.465-4.680) mIU/L - Radiology Data Radiology results: report reviewed (CT brain is unchanged), image reviewed Disposition Clinical Impression: Alzheimer's dementia, Acute encephalopathy, Altered mental status, Weakness, CVA (cerebral vascular accident) Disposition: ADMITTED IP TO THIS [facility] Condition: Fair Is patient prescribed a controlled substance at d/c from ED?: No Referrals: Keisha Dave MD [Primary Care Provider] - 1-2 days
[2017-09-17 18:15] LABS: Basophils % (A) 0 %; Eosinophils # (A) 0.2 k/uL (0-0.7); Eosinophils % (A) 3 %; HCT 37.6 % (39.0-53.0); HGB 12.8 gm/dL (13.0-17.5); Lymphocytes # (A) 2.3 k/uL (1.0-4.8); Lymphocytes % (A) 25 %; MCV 102.9 fL (80.0-100.0); Macrocytosis Slight; Mean Platelet Volume 8.9; Monocytes # (A) 0.7 k/uL (0-1.0); Monocytes % (A) 7 %; Neutrophils # (A) 5.8 k/uL (1.3-7.7); Neutrophils % (A) 63 %; Platelet Count 187 k/uL (150-450); RBC 3.65 m/uL (4.30-5.90); RDW 15.6 % (11.5-15.5); WBC 9.2 k/uL (3.8-10.6)
[2017-09-17 18:28] LABS: INR 1.1 (<1.2); Partial Thromboplastin Time 25.4 sec (22.0-30.0); Prothrombin Time 10.3 sec (9.0-12.0)
--- NOTE | 2017-09-17 18:28 | XR ---
EXAMINATION TYPE: XR chest 2V DATE OF EXAM: 09/17/2017 COMPARISON: 09/10/2017 HISTORY: Altered mental status. Weakness. TECHNIQUE: Frontal and lateral views of the chest are obtained. FINDINGS: There is elevated right diaphragm. There is no heart failure nor confluent pneumonic infil trate. There are chest leads. IMPRESSION: Chronic elevated right diaphragm. This could relate to partial paralysis. No change. No heart failure or pulmonary consolidation.
[2017-09-17 18:35] LABS: Albumin 4.1 g/dL (3.5-5.0); Calcium 9.5 mg/dL (8.4-10.2); Magnesium 2.5 mg/dL (1.6-2.3); Potassium 4.3 mmol/L (3.5-5.1); Total Bilirubin 0.7 mg/dL (0.2-1.3); Total Protein 6.8 g/dL (6.3-8.2)
[2017-09-17 18:53] LABS: Creatine Kinase MB 1.7 ng/mL (0.0-2.4); Troponin I 0.014 ng/mL (0.000-0.034)
--- NOTE | 2017-09-17 19:58 | CT ---
EXAMINATION TYPE: CT brain wo con DATE OF EXAM: 09/17/2017 COMPARISON: 09/10/2017 HISTORY: Increasing weakness per family. CT DLP: 764.7 mGycm Automated exposure control for dose reduction was used. FINDINGS: There is cerebral cortical atrophy. There is no mass effect nor midline shift. There is no sign of in tracranial hemorrhage. The calvarium is intact. IMPRESSION: CEREBRAL ATROPHY. NO ACUTE INTRACRANIAL ABNORMALITY. THERE IS SOME WHITE MATTER HYPODENSITY IN THE LE FT PARIETAL LOBE CONSISTENT WITH CHRONIC SMALL VESSEL ISCHEMIA. NO CHANGE COMPARED TO RECENT EXAM.
[2017-09-17] MEDS ORDERED: ASPIRIN 325 MG TAB PO STA (21:14)
[2017-09-17] MEDS: SODIUM CHLORIDE 0.9% 1,000 ML IV SCH (21:30)
[2017-09-18] MEDS: ATORVASTATIN 10 MG TAB PO SCH (08:51)
[2017-09-18] MEDS: MEMANTINE 10 MG TAB PO SCH (08:51)
[2017-09-18] MEDS: DIPYRIDAMOLE-ASPIRIN 200-25 MG 1 EACH CPMP.12HR PO SCH ×2 (08:51→20:42)
[2017-09-18] MEDS: DONEPEZIL 10 MG TAB PO SCH (08:51)
[2017-09-18 11:04] LABS: Appearance,Urine Clear (Clear); Bacteria,Urine Rare /hpf; Bilirubin,Urine Negative (Negative); Blood,Urine Large (Negative); Color,Urine Yellow; Glucose,Urine (UA) 4+ (Negative); Ketones,Urine Trace (Negative); Leukocyte Esterase,Urine Negative (Negative); Mucus,Urine Rare /hpf; Nitrite,Urine Negative (Negative); PH, Urine 5.5 (5.0-8.0); Protein,Urine Trace (Negative); RBC,Urine 27 /hpf (0-5); Specific Gravity,Urine 1.026 (1.001-1.035); WBC,Urine 3 /hpf (0-5)
[2017-09-18] MEDS: ASPIRIN 325 MG TAB PO SCH (11:25)
[2017-09-18] MEDS: LISINOPRIL 10 MG TAB PO SCH (11:40)
--- NOTE | 2017-09-18 12:47 | P.HPIM ---
History of Present Illness H&P Date: 09/18/17 Chief Complaint: Right lower extremity weakness This is a 82-year-old gentleman with past medical history noted below significant for advanced dementia who was brought in by his family for episode of right lower extremity weakness. Patient is unable to provide any history secondary to his advanced dementia most of the history was obtained by family at bedside. His told me that when he was trying to get out of the chair yesterday his right lower extremity completely gave out on him and he ended up landing slowly on the ground. He was unable to get up. She called her son and daughter that were unable to get him up either so she called 911. Patient was evaluated in the emergency room and a computed tomography scan of the brain showed no acute intracranial findings. Patient was admitted to the hospital for further evaluation. Patient himself denies any pain anywhere. He is not very cooperative with a neurologic exam that he obviously does not have any neuro neurological focal deficits or any obvious weakness even in the right lower extremity. An MRI of the brain was ordered by the emergency room physician Review of Systems Review of system: 14 points review of systems were obtained and were negative except to what were mentioned in the HPI. Past Medical History Past Medical History: Cancer, CVA/TIA, Dementia, Hypertension, Memory Impairment , Syncope Additional Past Medical History / Comment(s): pt is poor historian -obtained info from pt's ./[facility]."bladder CA about 7 years ago, last stoke 2 years ago Nov." History of Any Multi-Drug Resistant Organisms: None Reported Past Surgical History: Heart Catheterization Additional Past Surgical History / Comment(s): sx to removed bladder cancer. 20 yers ago sx to remove sperm tube d/t infection, rt eye cataract, rt eye macular hole sx. Past Anesthesia/Blood Transfusion Reactions: No Reported Reaction Smoking Status: Current every day smoker - Past Family History Mother Family Medical History: CVA/TIA, Hypertension Additional Family Medical History / Comment(s): series of strokes, smoker Father Family Medical History: Coronary Artery Disease (CAD) Additional Family Medical History / Comment(s): heart problems, smoker Medications and Allergies Home Medications Medication Instructions Recorded Confirmed Type Dipyridamole-Aspirin 200-25 mg 1 tab PO BID 09/10/17 09/17/17 History [Aggrenox 25MG -200MG] Atorvastatin Calcium [Lipitor] 10 mg PO DAILY 09/11/17 09/17/17 History Donepezil [Aricept] 10 mg PO DAILY 09/11/17 09/17/17 History Lisinopril [Zestril] 10 mg PO DAILY 09/11/17 09/17/17 History Memantine [Namenda] 10 mg PO DAILY 09/11/17 09/17/17 History Allergies Allergy/AdvReac Type Severity Reaction Status Date / Time No Known Allergies Allergy Verified 09/17/17 18:30 Physical Exam Vitals: Vital Signs Temp Pulse Pulse Resp BP BP BP 09/18/17 11:53 63 16 142/67 09/18/17 08:00 96.9 F L 58 L 16 143/63 09/18/17 04:00 97.1 F L 83 16 107/90 09/18/17 00:00 97.1 F L 72 16 140/63 09/17/17 21:34 98 F 69 18 139/78 09/17/17 20:39 60 18 122/58 09/17/17 19:21 71 16 149/72 09/17/17 18:54 68 18 150/72 09/17/17 17:46 98.7 F 69 16 117/57 Pulse Ox 09/18/17 11:53 97 09/18/17 08:00 99 09/18/17 04:00 97 09/18/17 00:00 98 09/17/17 21:34 97 09/17/17 20:39 98 09/17/17 19:21 97 09/17/17 18:54 99 09/17/17 17:46 98 Intake and Output 09/17/17 09/18/17 09/18/17 22:59 06:59 14:59 Intake Total 200 Output Total 300 Balance -100 Intake: Oral 200 Output: Urine 300 Straight 300 Other: # Voids 1 Weight 102.058 kg 101.5 kg General: The patient is awake and alert, in no distress Eye: there is normal conjunctiva bilaterally. Neck: The neck is supple, there is no JVD. Cardiovascular: Normal S1-S2, no S3-S4, no murmurs. Respiratory: Lungs clear to auscultation bilaterally Gastrointestinal: Abdomen is soft, nontender Musculoskeletal: There is no pedal edema. Neurological:. Speech is normal. Skin: Skin is warm and dry Results CBC & Chem 7: 09/17/17 17:57 09/17/17 17:57 Labs: Abnormal Lab Results - Last 24 Hours (Table) 09/17/17 09/17/17 09/18/17 Range/Units 17:57 17:57 10:45 RBC 3.65 L (4.30-5.90) m/uL Hgb 12.8 L (13.0-17.5) gm/dL Hct 37.6 L (39.0-53.0) % MCV 102.9 H (80.0-100.0) fL RDW 15.6 H (11.5-15.5) % Carbon Dioxide 21 L (22-30) mmol/L BUN 21 H (9-20) mg/dL Glucose 163 H (74-99) mg/dL Magnesium 2.5 H (1.6-2.3) mg/dL Urine Protein Trace H (Negative) Urine Glucose (UA) 4+ H (Negative) Urine Ketones Trace H (Negative) Urine Blood Large H (Negative) Urine RBC 27 H (0-5) /hpf Urine Bacteria Rare H (None) /hpf Urine Mucus Rare H (None) /hpf Thrombosis Risk Factor Assmnt - Choose All That Apply Any of the Below Risk Factors Present?: Yes Each Factor Represents 1 point: Obesity (BMI >25) Other Risk Factors: Yes Each Risk Factor Represents 3 Points: Age 75 years or older Other congenital or acquired thrombophilia - If yes, enter type in comment: No Thrombosis Risk Factor Assessment Total Risk Factor Score: 4 Thrombosis Risk Factor Assessment Level: Moderate Risk Assessment and Plan Assessment: 1. Transient right lower extremity weakness: Exact etiology unclear. I really doubt CVA. Awaiting neurology evaluation. MRI of the brain ordered by emergency room physician. Awaiting PT/OT evaluation. 2. History of multiple strokes in the past 3. Essential hypertension, resume home medication 4. Mixed hyperlipidemia on Lipitor 5. Advanced dementia 6. Physical debility Awaiting PT/OT consultation. Patient interested in rehab and possibly ECF.
--- NOTE | 2017-09-18 13:59 | MR ---
EXAMINATION TYPE: MR brain wo/w con DATE OF EXAM: 09/18/2017 COMPARISON: 09/17/2017 HISTORY: cva TECHNIQUE: Multiplanar, multisequence images of the brain and brainstem is performed without and with IV contras t, utilizing 10 mL intravenous Gadavist . FINDINGS: Diffusion weighted images demonstrate multifocal areas of abnormal increased signal involvi ng the parietal lobes bilaterally. All measure less than 1 cm. Findings compatible with multifocal ar eas of acute ischemia. Generalized degenerative change seen with confluent and focal areas of abnormal signal in the white m atter which are nonspecific but most typical remote microvascular ischemia. Midline structures demonstrate normal morphology. The craniocervical junction appears within normal limits. Post contrast images demonstrate no abnormal enhancement. The dural venous sinuses appear pa tent. Changes of chronic sinusitis and mastoiditis noted. Assessment of the signal voids of the carotid can al is limited due to artifact. There does appear to be normal enhancement in the region. Areas of abnormal signal in the kendra suggestive of remote ischemia. Next Vague enhancement left cerebellum felt to be artifactual IMPRESSION: 1. Multifocal areas of abnormal signal on diffusion imaging all measuring less than 1 cm within both parietal lobes compatible focal areas of acute ischemia. Consider embolic phenomenon. Reportedly imme diately called to patient's nurse. 2. Degenerative and extensive evidence of previous ischemia. 3. On T2 imaging there is increased signal within the carotid artery at this segment of the carotid c anal bilaterally but there appears to be normal enhancement. This may be artifactual. Correlation wit h ultrasound could be obtained.
[2017-09-18] MEDS: SODIUM CHLORIDE 0.9% 1,000 ML IV SCH (17:13)
[2017-09-18] MEDS: HEPARIN SODIUM,PORCINE 5,000 UNIT/ML 1 ML VIAL SQ SCH (20:42)
[2017-09-19] MEDS: LORazepam 0.5 MG TAB PO SCH ×2 (03:27→20:53)
[2017-09-19 05:54] LABS: Basophils # (A) 0.1 k/uL (0-0.2); Basophils % (A) 1 %; Eosinophils # (A) 0.4 k/uL (0-0.7); Eosinophils % (A) 6 %; HCT 35.4 % (39.0-53.0); HGB 11.9 gm/dL (13.0-17.5); Lymphocytes # (A) 2.8 k/uL (1.0-4.8); Lymphocytes % (A) 42 %; MCH 34.6 pg (25.0-35.0); MCHC 33.7 g/dL (31.0-37.0); MCV 102.6 fL (80.0-100.0); Macrocytosis Slight; Mean Platelet Volume 8.1; Monocytes # (A) 0.4 k/uL (0-1.0); Monocytes % (A) 6 %; Neutrophils # (A) 2.8 k/uL (1.3-7.7); Neutrophils % (A) 42 %; Platelet Count 170 k/uL (150-450); RBC 3.45 m/uL (4.30-5.90); RDW 15.5 % (11.5-15.5); WBC 6.5 k/uL (3.8-10.6)
[2017-09-19 06:05] LABS: Anion Gap 9 mmol/L; Blood Urea Nitrogen 16 mg/dL (9-20); Calcium 8.9 mg/dL (8.4-10.2); Carbon Dioxide 22 mmol/L (22-30); Chloride 110 mmol/L (98-107); Cholesterol 126 mg/dL (<200); Glucose 153 mg/dL (74-99); HDL Cholesterol 58 mg/dL (40-60); LDL Cholesterol,Calculated 46 mg/dL (0-99); Sodium 141 mmol/L (137-145); Triglycerides 109 mg/dL (<150)
--- NOTE | 2017-09-19 09:52 | P.CRDCN ---
History of Present Illness Consult date: 09/19/17 Requesting physician: John Loo Reason for Consult (text): CVA Chief complaint: Right sided weakness and fall History of present illness: This is an 82-year-old gentleman with history of hypertension, prior CVAs, history of bladder cancer, who was recently in the hospital last week with syncope. An echocardiogram with Doppler study was performed which revealed an ejection fraction of 55-60%. CAT scan of the brain was performed at that time which revealed age-related atrophic and chronic small vessel ischemic change without any intracranial process. Most of the history was obtained from the medical records as the patient also has advanced dementia. Patient apparently was brought to the hospital on this occasion by his , because of right-sided leg flaccidity and weakness causing the patient to fall. CAT scan of the brain was again performed which revealed cerebral atrophy, no acute intracranial abnormality, some white matter hypodensity in the left parietal lobe consistent with chronic small vessel ischemia, no change as compared with prior exam. An MRI of the brain was then performed which showed multifocal areas of abnormal signal on diffusion imaging, within both parietal lobes compatible for focal areas of acute ischemia. Consider embolic phenomena. Chest x-ray showed chronic elevation of right diaphragm, no change from recent exam. Blood pressure 117/57, heart rate in the 60s, 98% on room air. Hemoglobin 12.8 on arrival, 11.9 this morning, platelet count 170. Sodium 141, potassium 4.0, BUN 16, creatinine 0.8. Mag level of 2.5, troponin 0.014. Examination this morning, patient is sitting up in the chair at his bedside, he is confused, but very cooperative. We are waiting for his to arrive. Past Medical History Past Medical History: Cancer, CVA/TIA, Dementia, Hypertension, Memory Impairment , Syncope Additional Past Medical History / Comment(s): pt is poor historian -obtained info from pt's ./[facility]."bladder CA about 7 years ago, last stoke 2 years ago Nov." History of Any Multi-Drug Resistant Organisms: None Reported Past Surgical History: Heart Catheterization Additional Past Surgical History / Comment(s): sx to removed bladder cancer. 20 yers ago sx to remove sperm tube d/t infection, rt eye cataract, rt eye macular hole sx. Past Anesthesia/Blood Transfusion Reactions: No Reported Reaction Smoking Status: Current every day smoker - Past Family History Mother Family Medical History: CVA/TIA, Hypertension Additional Family Medical History / Comment(s): series of strokes, smoker Father Family Medical History: Coronary Artery Disease (CAD) Additional Family Medical History / Comment(s): heart problems, smoker Medications and Allergies Home Medications Medication Instructions Recorded Confirmed Type Dipyridamole-Aspirin 200-25 mg 1 tab PO BID 09/10/17 09/17/17 History [Aggrenox 25MG -200MG] Atorvastatin Calcium [Lipitor] 10 mg PO DAILY 09/11/17 09/17/17 History Donepezil [Aricept] 10 mg PO DAILY 09/11/17 09/17/17 History Lisinopril [Zestril] 10 mg PO DAILY 09/11/17 09/17/17 History Memantine [Namenda] 10 mg PO DAILY 09/11/17 09/17/17 History Allergies Allergy/AdvReac Type Severity Reaction Status Date / Time No Known Allergies Allergy Verified 09/17/17 18:30 Physical Exam Vitals: Vital Signs Temp Pulse Resp BP BP Pulse Ox 09/19/17 08:00 97.8 F 52 L 18 114/69 99 09/19/17 04:00 97.7 F 56 L 16 130/56 97 09/19/17 00:00 97.5 F L 62 16 134/63 95 09/18/17 20:00 97.7 F 57 L 16 115/53 96 09/18/17 15:57 98.2 F 60 16 128/59 97 09/18/17 11:53 63 16 142/67 97 Intake and Output 09/18/17 09/19/17 09/19/17 22:59 06:59 14:59 Intake Total 200 Balance 200 Intake: Oral 200 Other: # Voids 3 2 Weight 94.5 kg PHYSICAL EXAMINATION: HEENT: Head is atraumatic, normocephalic. Pupils equal, round. Neck is supple. There is no elevated jugular venous pressure. HEART EXAMINATION: Heart S1, S2 systolic murmur is heard. CHEST EXAMINATION: Lungs are clear to auscultation and precussion. No chest wall tenderness is noted on palpation or with deep breathing. ABDOMEN: Soft, nontender. Bowel sounds are heard. No organomegaly noted. EXTREMITIES: 2+ peripheral pulses with no evidence of peripheral edema and no calf tenderness noted. NEUROLOGIC patient is awake, alert and oriented times 1 Results 09/19/17 05:40 09/19/17 05:40 Lipids 09/19/17 Range/Units 05:40 Triglycerides 109 (<150) mg/dL Cholesterol 126 (<200) mg/dL HDL Cholesterol 58 (40-60) mg/dL CBC 09/19/17 Range/Units 05:40 WBC 6.5 (3.8-10.6) k/uL RBC 3.45 L (4.30-5.90) m/uL Hgb 11.9 L (13.0-17.5) gm/dL Hct 35.4 L (39.0-53.0) % Plt Count 170 (150-450) k/uL Comprehensive Metabolic Panel 09/19/17 Range/Units 05:40 Sodium 141 (137-145) mmol/L Potassium 4.0 (3.5-5.1) mmol/L Chloride 110 H (98-107) mmol/L Carbon Dioxide 22 (22-30) mmol/L BUN 16 (9-20) mg/dL Creatinine 0.80 (0.66-1.25) mg/dL Glucose 153 H (74-99) mg/dL Calcium 8.9 (8.4-10.2) mg/dL Current Medications Generic Name Dose Route Start Last Admin Trade Name Freq PRN Reason Stop Dose Admin Aspirin 325 mg 09/18/17 09:00 09/18/17 11:25 Aspirin PO Not Given DAILY [facility] Atorvastatin Calcium 10 mg 09/18/17 09:00 09/18/17 08:51 Lipitor PO 10 mg DAILY [facility] Administration Dipyridamole/Aspirin 1 each 09/18/17 09:00 09/18/17 20:42 Aggrenox PO 1 each BID [facility] Administration Donepezil HCl 10 mg 09/18/17 09:00 09/18/17 08:51 Aricept PO 10 mg DAILY [facility] Administration Heparin Sodium (Porcine) 5,000 unit 09/18/17 21:00 09/18/17 20:42 Heparin SQ 5,000 unit Q12HR [facility] Administration Lisinopril 10 mg 09/18/17 09:00 09/18/17 11:40 Zestril PO 10 mg DAILY [facility] Administration Lorazepam 0.5 mg 09/18/17 21:00 09/19/17 03:27 Ativan PO Not Given HS [facility] Memantine 10 mg 09/18/17 09:00 09/18/17 08:51 Namenda PO 10 mg DAILY [facility] Administration Intake and Output 09/18/17 09/19/17 09/19/17 22:59 06:59 14:59 Intake Total 200 Balance 200 Intake: Oral 200 Other: # Voids 3 2 Weight 94.5 kg 09/19/17 05:40 09/19/17 05:40 EKG Interpretations (text) No EKG has been performed, the rhythm strips show normal sinus rhythm with a first-degree AV block. Assessment and Plan Plan: Assessment and plan #1 symptoms of right-sided weakness with fall. Positive CVA. MRI reveals multifocal areas of abnormal signal on diffusion imaging compatible with focal areas of acute ischemia. Consider embolic phenomenon. #2 hypertension #3 advanced dementia #4 history of CVAs #5 nicotine dependence #6 history of bladder cancer Plan Patient had a recent echocardiogram with Doppler study performed approximately one week ago. This revealed a normal left ventricular systolic function. We will obtain an EKG, there is no evidence of any atrial fibrillation on the monitor, he is in sinus with first-degree AV block. Neurology has requested that cardiology perform a LUPE today in view of the fact that there are multiple areas of focal ischemia noted on the MRI. This will be performed today by Dr. Reddy. We would also recommend the patient may have a 30 day event monitor and subsequent loop recorder if necessary. DNP note has been reviewed, I agree with a documented findings and plan of care. Patient was seen and examined.
--- NOTE | 2017-09-19 09:53 | CONS ---
CONSULTATION DATE OF CONSULTATION: 09/18/2017 CHIEF COMPLAINT: Stroke. HISTORY OF PRESENT ILLNESS: The patient is a pleasant 82-year-old, male, who is being evaluated by the Neurology Service today on 09/18/2017 per the request of Dr. Guillaume for a stroke. The patient was brought into [facility] Emergency Room after he had a fall with no significant injury. When the family tried to help him up, they noticed significant weakness in his right lower extremity compared to the left. The patient has a previous history of stroke with residual mixed aphasia. He also has history of advanced Alzheimer's dementia, so he is a poor historian. The history was mainly obtained from his who is at bedside. In the emergency room, a CT scan of the brain was done, which showed small-vessel ischemic changes and generalized atrophy. The patient is on Aggrenox b.i.d. at home. An MRI of the brain was done, which showed acute ischemic strokes involving the right and the left parietal lobes. Old strokes were also seen. His CBC showed anemia with a hemoglobin of 12.8. His comprehensive metabolic profile was normal. His urinalysis showed no evidence of any urinary tract infection. At the time of my evaluation, the patient is lying in his bed and appears to be in no acute distress. His right lower extremity weakness has significantly improved. He denies any headache. PAST MEDICAL HISTORY: Stroke, dementia, hypertension, history of bladder cancer, history of cataract surgery and bladder surgery. SOCIAL HISTORY: The patient is a current every day smoker. There is no history of any alcohol or drug use. FAMILY HISTORY: Positive for strokes, hypertension, heart disease. HOME MEDICATIONS: Reviewed in the chart. ALLERGIES: No known drug allergies. REVIEW OF SYSTEMS: Unable to obtain due to aphasia and dementia. PHYSICAL EXAM: Vital signs show a temperature of 98.2, pulse 60, respirations 16, blood pressure 128/59. GENERAL APPEARANCE: The patient is a well-developed male, who appears to be in no acute distress. HEENT: Normocephalic, atraumatic, no obvious facial asymmetry is seen. NECK: Supple with no masses felt. CARDIOVASCULAR: Regular rate and rhythm. ABDOMEN: Nontender, nondistended. Extremities showed no edema or clubbing. NEUROLOGICAL EXAM: The patient is awake. He sometimes follows simple commands. Language testing showed a mixed aphasia. No obvious lateralizing weakness is seen, including his right lower extremity. Sensory exam was difficult to assess due to his aphasia. No obvious facial asymmetry is seen on cranial nerve testing. No tremors or seizure-like activity is seen. IMPRESSION: 1. Acute ischemic stroke, likely embolic in etiology. 2. History of previous stroke. 3. Mixed aphasia secondary to old stroke. 4. Right lower extremity weakness, resolved. 5. Advanced Alzheimer's dementia. RECOMMENDATION: The patient did have an MRI of the brain which showed acute ischemic strokes involving the right and the left parietal lobe. There is concerns for embolic etiology. I will consult Cardiology for a transesophageal echocardiogram. If any intracardiac thrombus is seen, the patient will need to be on anticoagulation therapy. For now, continue anti-platelet therapy. I will order a fasting lipid panel, EEG, homocystine level, and carotid Doppler. Continue neuro checks. Physical therapy has been consulted. I will continue to follow with you. Further recommendations to follow. Thank you for allowing me to participate in the care of your patient. If you have any questions, please feel free to contact me. MMODL / IJN: [id number] /
[2017-09-19] MEDS ORDERED: fentaNYL (PF) 50 MCG/ML 2 ML AMP ONE (10:53)
[2017-09-19] MEDS ORDERED: MIDAZOLAM 2 MG/2 ML VIAL ONE ×2 (10:53)
[2017-09-19] MEDS: BENZOCAINE SPRAY 1 CAN MUCOUS MEM ONE ×2 (11:25→11:29)
[2017-09-19] MEDS ORDERED: SODIUM CHLORIDE 0.9% 500 ML IV ONE (11:25)
[2017-09-19] MEDS ORDERED: fentaNYL (PF) 50 MCG/ML 2 ML AMP IV ONE (11:29)
[2017-09-19] MEDS ORDERED: MIDAZOLAM 2 MG/2 ML VIAL IVP ONE (11:29)
--- NOTE | 2017-09-19 11:40 | P.PN ---
Subjective Progress Note Date: 09/19/17 Principal diagnosis: Acute stroke Patient is scheduled for LUPE today. No events overnight. Objective - Vital Signs Vital signs: Vital Signs Temp 97.8 F 09/19/17 10:07 Pulse 50 L 09/19/17 11:33 Resp 18 09/19/17 10:07 BP 171/77 09/19/17 11:33 Pulse Ox 100 09/19/17 11:33 Intake & Output 09/18/17 09/19/17 09/19/17 18:59 06:59 18:59 Intake Total 400 Output Total 600 Balance -200 Weight 94.5 kg Intake: Oral 400 Output: Urine 600 Straight 300 Other: # Voids 3 2 1 - Exam General: The patient is awake and alert, in no distress Eye: there is normal conjunctiva bilaterally. Neck: The neck is supple, there is no JVD. Cardiovascular: Normal S1-S2, no S3-S4, no murmurs. Respiratory: Lungs clear to auscultation bilaterally Gastrointestinal: Abdomen is soft, nontender Musculoskeletal: There is no pedal edema. Skin: Skin is warm and dry - Labs CBC & Chem 7: 09/19/17 05:40 09/19/17 05:40 Labs: Abnormal Lab Results - Last 24 Hours (Table) 09/19/17 09/19/17 Range/Units 05:40 05:40 RBC 3.45 L (4.30-5.90) m/uL Hgb 11.9 L (13.0-17.5) gm/dL Hct 35.4 L (39.0-53.0) % MCV 102.6 H (80.0-100.0) fL Chloride 110 H (98-107) mmol/L Glucose 153 H (74-99) mg/dL Microbiology - Last 24 Hours (Table) 09/18/17 10:45 Urine Culture - Final Urine,Catheterized Assessment and Plan Assessment: 1. Bilateral acute stroke involving both parietal lobes concerning for embolic phenomenon. Patient is scheduled for LUPE today. 2. History of multiple strokes in the past 3. Essential hypertension, blood pressure not well-controlled. Increase lisinopril dose to 20 mg daily 4. Mixed hyperlipidemia on Lipitor. Cholesterol level at goal. LDL 46 5. Advanced dementia 6. Physical debility Appreciate instructional design consultant's recommendations. Awaiting LUPE results. PT/OT evaluation. Repeat Work in the morning. Monitor blood pressure closely.
--- NOTE | 2017-09-19 12:14 | ECHOT ---
TRANSESOPHAGEAL ECHOCARDIOGRAM DATE OF SERVICE: 09/19/2017 PERFORMING PHYSICIAN: Chinmay Robles MD. PROCEDURE PERFORMED: Transesophageal echocardiogram. INDICATION: This is a pleasant 82-year-old gentleman who presented to the hospital with a stroke. He was seen and evaluated by Dr. Guevara who recommended proceeding with a transesophageal echocardiogram to rule out any cardiac source of embolization. Please note that the patient underwent a CT scan and the CT scan showed possible embolic stroke. COMPLICATION: None. LEVEL OF SEDATION: Moderate with sedation length of 12 minutes. PROCEDURE DESCRIPTION: After obtaining an informed consent, explaining the procedure, benefits, risks, complications and alternatives, the patient was brought to the transesophageal echocardiogram suite. A pulse oximetry and heart rate monitors were attached to the patient prior to the procedure. The patient's throat was sprayed using lidocaine locally. Following that, the patient was turned into left lateral position. A bite guard was placed and the patient was then sedated with the above doses of Versed and fentanyl in divided doses. Following that, the transesophageal echocardiogram probe was advanced through the bite guard into the mid esophagus where 2-D echocardiogram images as well as color Doppler images of various cardiac structures were obtained. We evaluated the interatrial septum using 2-D echocardiogram, color Doppler, and contrast study. The procedure was completed. There were no complications. FINDINGS: The left ventricular dimension appeared to be within normal limits. The left ventricular systolic function appeared to be within normal limits with an ejection fraction between 50%-55%. There was mild concentric LVH seen. The right ventricle appeared to be within normal limits for dimension. The left atrium appeared to be intact without any evidence of thrombus. The left atrial appendage appeared to be free from any thrombus. The interatrial septum appeared to be mildly hyperdynamic with evidence of small atrial septal defect, seems to be secondary with hccj-gt-djhel shunt without any mteqm-xa-dwyf shunt. No PFO seen. No evidence of fuimw-jh-iwpg shunt seen. The aortic valve appeared to be thickened and calcified with evidence of mild aortic stenosis only. There was moderate aortic regurgitation seen. The mitral valve seems to be also thickened and calcified with mild to moderate MR. The aortic root was mildly dilated and measured about 3.9 cm. CONCLUSION: 1. There is no evidence of cardiac source of embolization. 2. Normal left atrial appendage without any evidence of thrombus. 3. Normal left ventricular dimension and systolic function. 4. Normal right ventricular dimension and systolic function. 5. Possible small atrial septal defect with only llms-xx-xwcvg shunt. 6. Aortic sclerosis with mild aortic stenosis and mild to moderate aortic insufficiency. 7. Thickened mitral valve leaflets with mild to moderate mitral regurgitation. 8. Normal tricuspid valve and pulmonic valve. 9. No evidence of pericardial effusion seen. MMODL / IJN: [id number] /
[2017-09-19] MEDS: LISINOPRIL 10 MG TAB PO SCH (12:24)
--- NOTE | 2017-09-19 14:45 | P.PN ---
Subjective Progress Note Date: 09/19/17 Principal diagnosis: Stroke Is a pleasant 82-year-old male continuing to be evaluated by the neurology service for stroke. His presenting symptoms were a fall. His family tried to help him up in the noticed weakness of his right lower extremity. He does have a history of stroke. He has diagnosis of advanced Alzheimer's. Initial CT of the brain showed no acute intracranial abnormalities but did show small vessel ischemic changes and generalized atrophy. An MRI did show acute ischemic strokes involving the right and left parietal lobes. His old strokes were also seen. Transesophageal echocardiogram was done to rule out an embolic source. The LUPE was negative. At the time of my exam he is sleeping comfortably in bed in no acute distress. Lipid panel show a triglyceride of 109 and LDL of 46 with total cholesterol of 126 and HDL of 58 Objective - Vital Signs Vital signs: Vital Signs Temp 97.8 F 09/19/17 10:07 Pulse 53 L 09/19/17 13:10 Resp 16 09/19/17 13:10 BP 147/63 09/19/17 13:10 Pulse Ox 100 09/19/17 13:10 Intake & Output 09/18/17 09/19/17 09/19/17 18:59 06:59 18:59 Intake Total 400 200 Output Total 600 Balance -200 200 Weight 94.5 kg Intake: IV 200 Oral 400 Output: Urine 600 Straight 300 Other: # Voids 3 2 1 - Constitutional General appearance: Present: average body habitus, no acute distress - EENT ENT: Present: hearing grossly normal - Neck Neck: Present: normal ROM. Absent: rigidity - Respiratory Respiratory: negative: prolonged expiration, prolonged inspiration - Cardiovascular Rhythm: regular - Gastrointestinal General gastrointestinal: Absent: distended, tenderness - Neurologic Neurologic Comment(s): The patient is asleep but easily awoken. He does follow some simple commands. He has not compliant with traditional strength testing however no significant lateralizing weakness is appreciated. He does have a little lid lag on the right side. No tremors or seizure-like activities are seen. - Labs CBC & Chem 7: 09/19/17 05:40 09/19/17 05:40 Labs: Abnormal Lab Results - Last 24 Hours (Table) 09/19/17 09/19/17 Range/Units 05:40 05:40 RBC 3.45 L (4.30-5.90) m/uL Hgb 11.9 L (13.0-17.5) gm/dL Hct 35.4 L (39.0-53.0) % MCV 102.6 H (80.0-100.0) fL Chloride 110 H (98-107) mmol/L Glucose 153 H (74-99) mg/dL Microbiology - Last 24 Hours (Table) 09/18/17 10:45 Urine Culture - Final Urine,Catheterized Assessment and Plan (1) Mixed aphasia Current Visit: Yes Status: Chronic Code(s): R47.01 - APHASIA SNOMED Code(s ): 870896968 (2) Right leg weakness Current Visit: Yes Status: Resolved Code(s): R29.898 - OTH SYMPTOMS AND SIGNS INVOLVING THE MUSCULOSKELETAL SYSTEM SNOMED Code(s): 410938478 (3) Acute encephalopathy Current Visit: Yes Status: Suspected Code(s): G93.40 - ENCEPHALOPATHY, UNSPECIFIED SNOMED Code(s): 51559006 (4) Alzheimer's dementia Current Visit: Yes Status: Chronic Code(s): G30.9 - ALZHEIMER'S DISEASE, UNSPECIFIED; F02.80 - DEMENTIA IN OTH DISEASES CLASSD ELSWHR W/O BEHAVRL DISTURB SNOMED Code(s): 75797915 (5) CVA (cerebral vascular accident) Current Visit: Yes Status: Acute Code(s): I63.9 - CEREBRAL INFARCTION, UNSPECIFIED SNOMED Code(s): 301198997 Plan: The patient did have acute ischemic strokes involving the right and left parietal lobe. Transesophageal echocardiogram was negative for an intracardiac thrombus. Continue neuro checks. Continue to work with physical and speech therapy. Consider increasing Lipitor. Barring any unforeseen abnormalities on his EEG he is cleared from a neurological standpoint likely to be discharged to a rehabilitative or long-term care facility. I have performed a history and physical on the above patient. I have reviewed the above note, and agree.
[2017-09-19] MEDS: HEPARIN SODIUM,PORCINE 5,000 UNIT/ML 1 ML VIAL SQ SCH ×2 (15:20→20:53)
[2017-09-19] MEDS: DIPYRIDAMOLE-ASPIRIN 200-25 MG 1 EACH CPMP.12HR PO SCH ×2 (15:20→20:53)
[2017-09-19] MEDS: MEMANTINE 10 MG TAB PO SCH (15:20)
[2017-09-19] MEDS: ATORVASTATIN 10 MG TAB PO SCH (15:20)
[2017-09-19] MEDS: ASPIRIN 325 MG TAB PO SCH ×2 (15:20→15:35)
[2017-09-19] MEDS: DONEPEZIL 10 MG TAB PO SCH (15:20)
[2017-09-19] MEDS: LISINOPRIL 20 MG TAB PO SCH (15:20)
[2017-09-20 06:44] LABS: Basophils % (A) 1 %; Eosinophils # (A) 0.3 k/uL (0-0.7); Eosinophils % (A) 6 %; HCT 36.3 % (39.0-53.0); Lymphocytes # (A) 2.1 k/uL (1.0-4.8); Lymphocytes % (A) 39 %; MCHC 32.9 g/dL (31.0-37.0); MCV 103.3 fL (80.0-100.0); Macrocytosis Slight; Mean Platelet Volume 9.5; Monocytes # (A) 0.3 k/uL (0-1.0); Monocytes % (A) 6 %; Neutrophils # (A) 2.6 k/uL (1.3-7.7); Neutrophils % (A) 47 %; Platelet Count 160 k/uL (150-450); RBC 3.52 m/uL (4.30-5.90); RDW 15.3 % (11.5-15.5); WBC 5.6 k/uL (3.8-10.6)
[2017-09-20 06:57] LABS: Anion Gap 10 mmol/L; Blood Urea Nitrogen 14 mg/dL (9-20); Calcium 9.1 mg/dL (8.4-10.2); Carbon Dioxide 23 mmol/L (22-30); Chloride 107 mmol/L (98-107); Glucose 159 mg/dL (74-99); Sodium 140 mmol/L (137-145)
[2017-09-20] MEDS: MEMANTINE 10 MG TAB PO SCH (07:57)
[2017-09-20] MEDS: DIPYRIDAMOLE-ASPIRIN 200-25 MG 1 EACH CPMP.12HR PO SCH ×2 (07:57→20:48)
[2017-09-20] MEDS: ATORVASTATIN 10 MG TAB PO SCH (07:57)
[2017-09-20] MEDS: DONEPEZIL 10 MG TAB PO SCH (07:57)
[2017-09-20] MEDS: HEPARIN SODIUM,PORCINE 5,000 UNIT/ML 1 ML VIAL SQ SCH ×2 (07:57→20:48)
--- NOTE | 2017-09-20 13:26 | P.PN ---
Subjective Principal diagnosis: Acute stroke Patient went for EEG today. Objective - Vital Signs Vital signs: Vital Signs Temp 97.6 F 09/20/17 11:01 Pulse 60 09/20/17 11:01 Resp 16 09/20/17 11:01 BP 146/86 09/20/17 11:01 Pulse Ox 98 09/20/17 11:01 Intake & Output 09/19/17 09/20/17 09/20/17 18:59 06:59 18:59 Intake Total 300 340 250 Balance 300 340 250 Weight 99 kg Intake: IV 200 Intake, IV Titration 0 10 Amount Sodium Chloride 0.9% 500 0 10 ml As IV .[employer] Rx# :[id number] Oral 100 340 240 Other: # Voids 5 1 - Exam General: The patient is awake and alert, in no distress Eye: there is normal conjunctiva bilaterally. Neck: The neck is supple, there is no JVD. Cardiovascular: Normal S1-S2, no S3-S4, no murmurs. Respiratory: Lungs clear to auscultation bilaterally Gastrointestinal: Abdomen is soft, nontender Musculoskeletal: There is no pedal edema. Skin: Skin is warm and dry - Labs CBC & Chem 7: 09/20/17 06:30 09/20/17 06:30 Labs: Abnormal Lab Results - Last 24 Hours (Table) 09/20/17 09/20/17 Range/Units 06:30 06:30 RBC 3.52 L (4.30-5.90) m/uL Hgb 12.0 L (13.0-17.5) gm/dL Hct 36.3 L (39.0-53.0) % MCV 103.3 H (80.0-100.0) fL Glucose 159 H (74-99) mg/dL Microbiology - Last 24 Hours (Table) 09/18/17 10:45 Urine Culture - Final Urine,Catheterized Assessment and Plan Assessment: 1. Bilateral acute stroke involving both parietal lobes concerning for embolic phenomenon. Patient underwent a LUPE with no evidence of intracardiac source. He is scheduled for EEG today per neurology recommendations. 2. History of multiple strokes in the past 3. Essential hypertension, blood pressure better controlled. Lisinopril dose was increased to 20 mg daily. 4. Mixed hyperlipidemia on Lipitor. Cholesterol level at goal. LDL 46 5. Advanced dementia 6. Physical debility Appreciate continuous improvement consultant's recommendations. PT/OT evaluation. Repeat Work in the morning. Monitor blood pressure closely. apron worker consulted for placement. Patient will benefit from subacute rehab. Awaiting discussion with family. Anticipate discharge home tomorrow.
[2017-09-20] MEDS: LORazepam 0.5 MG TAB PO SCH (20:48)
[2017-09-21 06:33] LABS: Anion Gap 11 mmol/L; Blood Urea Nitrogen 16 mg/dL (9-20); Calcium 9.4 mg/dL (8.4-10.2); Carbon Dioxide 24 mmol/L (22-30); Chloride 106 mmol/L (98-107); Glucose 160 mg/dL (74-99); Potassium 4.1 mmol/L (3.5-5.1); Sodium 141 mmol/L (137-145)
[2017-09-21 06:35] LABS: Basophils # (A) 0.1 k/uL (0-0.2); Basophils % (A) 1 %; Eosinophils # (A) 0.3 k/uL (0-0.7); Eosinophils % (A) 5 %; HCT 35.9 % (39.0-53.0); Lymphocytes # (A) 2.5 k/uL (1.0-4.8); Lymphocytes % (A) 40 %; MCHC 33.5 g/dL (31.0-37.0); MCV 101.3 fL (80.0-100.0); Macrocytosis Slight; Mean Platelet Volume 8.1; Monocytes # (A) 0.4 k/uL (0-1.0); Monocytes % (A) 6 %; Neutrophils # (A) 2.9 k/uL (1.3-7.7); Neutrophils % (A) 46 %; Platelet Count 179 k/uL (150-450); RBC 3.55 m/uL (4.30-5.90); RDW 15.3 % (11.5-15.5); WBC 6.3 k/uL (3.8-10.6)
[2017-09-21 08:16] VITALS: RESP 16; TEMP 97
[2017-09-21] MEDS: DIPYRIDAMOLE-ASPIRIN 200-25 MG 1 EACH CPMP.12HR PO SCH (08:17)
[2017-09-21] MEDS: ATORVASTATIN 10 MG TAB PO SCH (08:17)
[2017-09-21] MEDS: DONEPEZIL 10 MG TAB PO SCH (08:17)
[2017-09-21] MEDS: LISINOPRIL 20 MG TAB PO SCH (08:18)
[2017-09-21] MEDS: MEMANTINE 10 MG TAB PO SCH (08:18)
[2017-09-21] MEDS: HEPARIN SODIUM,PORCINE 5,000 UNIT/ML 1 ML VIAL SQ SCH (08:18)
[2017-09-21 12:02] VITALS: BP 133/63; PULSE 60
--- NOTE | 2017-09-21 14:43 | P.DS ---
Providers Date of admission: 09/19/17 10:03 Expected date of discharge: 09/21/17 Attending physician: Sudhir Guillaume Consults: 09/17/17 21:15 Consult Physician Routine Consulting Provider: Sasha Welsh Consult Reason/Comments: cva Do you want consulting provider notified?: Yes 09/18/17 14:21 Consult Physician Urgent Consulting Provider: [facility] Consult Reason/Comments: LUPE Do you want consulting provider notified?: Yes Primary care physician: Keisha Dave Hospital Course: 1. Bilateral acute stroke involving both parietal lobes concerning for embolic phenomenon. Patient underwent a LUPE with no evidence of intracardiac source. 2. History of multiple strokes in the past 3. Essential hypertension, blood pressure better controlled. Lisinopril dose was increased to 20 mg daily. 4. Mixed hyperlipidemia on Lipitor. Cholesterol level at goal. LDL 46 5. Advanced dementia 6. Physical debility: Patient will be discharged to [facility] for subacute rehab Patient Condition at Discharge: Fair Plan - Discharge Summary Discharge Rx Participant: No New Discharge Prescriptions: New Lisinopril [Zestril] 20 mg PO DAILY #30 tab LORazepam [Ativan] 0.5 mg PO HS #15 tab Continue Dipyridamole-Aspirin 200-25 mg [Aggrenox 25MG -200MG] 1 tab PO BID Memantine [Namenda] 10 mg PO DAILY Donepezil [Aricept] 10 mg PO DAILY Atorvastatin Calcium [Lipitor] 10 mg PO DAILY Discontinued Lisinopril [Zestril] 10 mg PO DAILY Discharge Medication List Dipyridamole-Aspirin 200-25 mg [Aggrenox 25MG -200MG] 1 tab PO BID 09/10/17 [ History] Atorvastatin Calcium [Lipitor] 10 mg PO DAILY 09/11/17 [History] Donepezil [Aricept] 10 mg PO DAILY 09/11/17 [History] Memantine [Namenda] 10 mg PO DAILY 09/11/17 [History] LORazepam [Ativan] 0.5 mg PO HS #15 tab 09/21/17 [Rx] Lisinopril [Zestril] 20 mg PO DAILY #30 tab 09/21/17 [Rx] Follow up Appointment(s)/Referral(s): Keisha Dave MD [Primary Care Provider] - 1-2 days Chinmay Robles MD [STAFF PHYSICIAN] - 1 Week (Pt needs to wear 30 day event monitor.) Patient Instructions/Handouts: Stroke (DC) Activity/Diet/Wound Care/Special Instructions: Per Dr Loo arrange for 30 day event monitor during cardiology office visit. Discharge Disposition: TRANSFER TO SNF/ECF
--- NOTE | 2017-09-23 17:56 | EEG ---
ELECTROENCEPHALOGRAM REPORT DATE OF SERVICE: 09/20/2017. REASON FOR TESTING: Stroke. DESCRIPTION OF THE PROCEDURE: This EEG was performed using a 21-channel digital electroencephalograph, following international 10-20 system. DESCRIPTION OF THE RECORDING: From the beginning of the tracing, and with the patient's eyes closed, the background rhythm was mostly consisting of 8-9 Hz alpha frequency in the posterior occipital leads. No obvious asymmetry is seen. Occasional movement and muscle artifacts are seen. Photic stimulation was performed with a minimal driving response seen. No pathological waves were elicited. Hyperventilation was not performed. More frequent muscle artifacts are seen later in the tracing. The patient remains awake throughout the tracing. No obvious epileptiform discharges were seen. His EKG lead showed a regular rate and rhythm. INTERPRETATION: This awake EEG can be considered within normal limits. There was no asymmetry seen. No epileptiform discharges were noticed. The absence of epileptiform discharges does not rule out the diagnosis of epilepsy; therefore clinical correlation is recommended. MMHONEY / AWILDA: [id number] /
--- NOTE | 2017-09-24 07:45 | CDI ---
Last Revision, April 2017 Documentation Clarification Form Date: 09/24/17 From: Ioana Ever Teagan Manning, Professional Healthcare Representative Hours-8:30 am & 5 pm Nikhil Admit Date: 09/19/2017 10:03:00 AM Patient Name: Jorge Alberto Lou Visit Number: [id number] Discharge Date: 09/21/17 ATTENTION: The Clinical Documentation Specialists (CDI) and [facility] Coding Staff appreciate your assistance in clarifying documentation. Please respond to the clarification below the line at the bottom and electronically sign. The CDI & [facility] Coding staff will review the response and follow-up if needed. Please note: Queries are made part of the Legal Health Record. If you have any questions, please contact the author of this message via ITS. Dr. John Loo Echo: Small atrial septal defect with only left to right shunt. Aortic sclerosis with mild aortic stenosis and mild to moderate aortic insufficiency. Mild to moderate mitral regurgitation. History/Risk Factors: Stroke Clinical significance of diagnostic testing and treatment CANNOT be assumed or coded without physician documentation of significance if any. Please clarify what abnormal echo results signifies: Atrial septal defect Aortic stenosis/insufficiency with mitral regurgitation Unable to determine Other, please specify Please continue to document in your progress notes and discharge summary in order to capture severity of illness and risk of mortality. Include clinical findings that support your diagnosis. Suspected small ASD on LUPE with left to right shunt only MTDD
== END 2017-09-21 16:32 | DRG 64 ==
LOC: EC 17:43 → 6SEL 21:14 → OBSVTOIN 09-19 10:03
PROVIDERS: ADMIT Internal Medicine; ATTEND Internal Medicine
PROC: B246ZZ4 Ultrasonography of Right and Left Heart, Transesophageal (ICD-10-PCS; principal; 2017-09-19 11:30)
DX: I63.49 Cerebral infarction due to embolism of other cerebral artery (principal); R40.2212 Coma scale, best verbal response, none, at arrival to emergency department; G93.40 Encephalopathy, unspecified; G81.01 Flaccid hemiplegia affecting right dominant side; Q21.1 Atrial septal defect; I69.320 Aphasia following cerebral infarction; G30.9 Alzheimer's disease, unspecified; F02.80 Dementia in other diseases classified elsewhere, unspecified severity, without behavioral disturbance, psychotic disturbance, mood disturbance, and anxiety; R40.2362 Coma scale, best motor response, obeys commands, at arrival to emergency department; R40.2142 Coma scale, eyes open, spontaneous, at arrival to emergency department; R29.709 NIHSS score 9; I10 Essential (primary) hypertension; E78.2 Mixed hyperlipidemia; D64.9 Anemia, unspecified; R53.81 Other malaise; F17.210 Nicotine dependence, cigarettes, uncomplicated; Z71.6 Tobacco abuse counseling; Z79.899 Other long term (current) drug therapy; Z85.51 Personal history of malignant neoplasm of bladder; Z98.41 Cataract extraction status, right eye; Z82.49 Family history of ischemic heart disease and other diseases of the circulatory system; Z82.3 Family history of stroke; Z81.2 Family history of tobacco abuse and dependence; W07.XXXA Fall from chair, initial encounter
CPT/HCPCS: 36415; 70450; 70553; 71046; 80048; 80053; 80061; 81001; 82550; 82553; 83090; 83735; 84100; 84443; 84484; 85025; 85610; 85730; 87086; 93005; 93312; 93320; 93325; 94760; 95816; 96360; 96361; 99285